=== PATIENT | female | born 1995 | race African-American/Black ===

== ENCOUNTER → 2019-01-12 08:28 | Outpatient (CLI) | payer OTHER, SELFPAY ==
[2019-01-12 09:02] LABS: Influenza A and B by PCR Rapid Negative (Negative)
[2019-01-12 09:16] LABS: Add Manual Diff / Slide Review NO; Basophils Absolute Auto 100 /uL (0-100); Basophils Percent Auto 0.8 % (0-2); Eosinophils Absolute Auto 100 /uL (0-450); Eosinophils Percent Auto 1.8 % (2-4); Lymphocytes Absolute Auto 1600 /uL (1100-4500); Lymphocytes Percent Auto 22.7 % (25-40); Mean Corpuscular HGB Conc 32.5 % (30-36); Mean Corpuscular Hemoglobin 26.9 PG (26-34); Mean Corpuscular Volume 82.6 fL (80-100); Monocytes Absolute Auto 600 /uL (0-900); Monocytes Percent Auto 8.5 % (3-14); Neutrophils Absolute Auto 4600 /uL (1500-7000); Neutrophils Percent Auto 66.2 % (50-75); Platelet Count 413 X10^3/uL (150-400); Red Blood Cell Count 4.84 X10^6/uL (4.0-5.2); Red Cell Distribution Width 15.1 % (11.6-14.8)
[2019-01-12 09:27] LABS: Alanine Aminotransferase 34 IU/L (9-52); Albumin Globulin Ratio 1.3 (1.0-2.8); Alkaline Phosphatase 60 U/L (38-126); Aspartate Aminotransferase 29 IU/L (14-36); BUN Creatinine Ratio 11.3 (6-22); Bilirubin Total 0.4 mg/dL (0.2-1.3); Blood Urea Nitrogen 9 mg/dL (7-17); Calcium 9.9 mg/dL (8.4-10.2); Carbon Dioxide 22 mmol/L (22-32); Chloride 106 mmol/L (98-107); Estimated Glomerular Filt Rate > 60.0 mL/min (>60); Glucose 90 mg/dL (70-100); HEMOLYSIS < 15 (0-50); Potassium 3.8 mmol/L (3.4-5.1); Sodium 141 mmol/L (137-145)
== END ==
PROVIDERS: Visit Provider Physician Assistant
DX: R68.89 Other general symptoms and signs (principal); R11.10 Vomiting, unspecified
CPT/HCPCS: 80053; 85025; 87400

== ENCOUNTER → 2021-03-27 19:04 | Outpatient (ROUT) | payer OTHER, SELFPAY ==
[2021-03-27 19:54] LABS: Alanine Aminotransferase 23 IU/L (<35); Albumin 4.6 g/dL (3.5-5.0); Albumin Globulin Ratio 1.2 (1.0-2.8); Alkaline Phosphatase 67 U/L (38-126); Aspartate Aminotransferase 28 IU/L (14-36); Bilirubin Total 0.2 mg/dL (0.2-1.3); Blood Urea Nitrogen 13 mg/dL (7-17); Calcium 10.1 mg/dL (8.4-10.2); Carbon Dioxide 26 mmol/L (22-32); Chloride 103 mmol/L (98-107); Estimated Glomerular Filt Rate > 60.0 mL/min (>60); Globulin 3.9 g/dL (1.7-4.1); Glucose 91 mg/dL (70-100); HEMOLYSIS < 15 (0-50); Potassium 4.3 mmol/L (3.4-5.1); Sodium 141 mmol/L (137-145); Total Protein 8.5 g/dL (6.3-8.2)
[2021-03-27 20:22] LABS: TSH w/ Reflex to FT4 0.67 uIU/mL (0.47-4.68)
== END ==
PROVIDERS: Visit Provider Internal Medicine
DX: I10 Essential (primary) hypertension (principal)
CPT/HCPCS: 80053; 84443

== ENCOUNTER 2022-06-16 22:59 | Emergency (ER) | payer OTHER, SELFPAY ==
--- NOTE | 2022-06-16 23:04 | DI.RAD.S_ITS ---
PROCEDURE: XR ELBOW LT MIN 3V INDICATIONS: fall TECHNIQUE: 3 views of the elbow were acquired. COMPARISON: None. FINDINGS: Bones: Acute nondisplaced fracture through lateral humeral condyle is seen with fracture line likely extending to the capitellum. No suspicious bony lesions. Soft tissues: Displaced anterior and posterior fat pads are seen consistent with moderate joint effusion. No suspicious soft tissue calcifications. IMPRESSION: Acute nondisplaced lateral humeral condylar fracture with moderate joint effusion. Dictated by: Rolan Maier M.D. on 06/16/2022 at 23:39 Approved by: Rolan Maier M.D. on 06/16/2022 at 23:40
[2022-06-16 23:05] VITALS: PULSE 118; RESP 20; TEMP 36.7; O2SAT 100
--- NOTE | 2022-06-16 23:20 | ED_ITS ---
HPI - Extremity Injury (Upper) General Chief Complaint: Extremity Injury, Upper Stated Complaint: Fall from kitchen counter onto left elbow Time Seen by Provider: 06/16/22 23:01 Source: patient Mode of arrival: Ambulatory History of Present Illness HPI narrative: 26-year-old female nonsmoker with noncontributory medical history presents with her significant other and a chief complaint of severe left elbow pain. She was climbing up on a counter just prior to her arrival trying to catch a spider when she fell awkwardly onto her elbow and states that it hyperextended. She has some numbness in her fingers but is able to extend at the wrist. She denies any shoulder, wrist or finger pain she denies any chest pain or shortness of breath. Her pain is significantly worse with range of motion and improves with rest. She denies any head, neck or back pain Related Data Previous Rx's Medication Instructions Recorded triamcinolone acetonide 0.5 % 1 applic topical TID #15 grams 11/28/21 topical ointment hydrocodone 5 mg-acetaminophen 325 1 tab PO Q4-6H PRN pain #10 tabs 06/16/22 mg tablet Allergies Allergy/AdvReac Type Severity Reaction Status Date / Time No Known Drug Allergies Allergy Verified 11/28/21 08:19 Review of Systems Review of Systems Narrative: GENERAL: Denies chills, fatigue, malaise, fever, sweats. HEENT: Denies sinus pain, ear pain, sore throat, difficulty swallowing, dizziness. RESPIRATORY: Denies dyspnea, cough, wheezing, hemoptysis, sputum. CARDIOVASCULAR: Denies chest pain, palpitations, orthopnea, edema, GASTROINTESTINAL: Denies nausea, vomiting, abdominal pain, diarrhea, constipation, melena. : Denies dysuria, frequency, incontinence, hematuria, urinary retention. MUSCULOSKELETAL: See HPI SKIN: Denies rash, skin lesions, or other NEUROLOGIC: See HPI PSYCHIATRIC: No concerning psychosocial issues. 12 point review of systems is negative except for those stated above Patient History Social History Smoking Status: Never smoker Smoking Status: Never smoker Exam Narrative Exam Narrative: GEN: AOx3 and in mild distress EYES: Pupils are equal, round, and reactive to light and accommodation. Extraoccular muscles are intact bilaterally. There is no subconjunctival hemorrhage or exudate. CHEST: Lungs are clear to auscultation bilaterally and free of wheezes, rales, or rhonchi. Heart rate is regular rhythm, there are no murmurs, clicks, rubs, or gallops. There is no chest wall tenderness. ABD: Abdomen is soft and nontender. There is no guarding or rebound. Bowel sounds are normal in all 4 quadrants. There is no mass or organomegaly. EXT: Decreased range of motion at left elbow secondary to pain, moderate effusion noted, no obvious deformity. No pain in shoulder or wrist. Cap refill intact, she does report some tingling of the tips of her fingers, radial pulse is intact. She has full extension at the wrist SKIN: Warm, pink, and dry. No erythema or rash Initial Vital Signs Initial Vital Signs: Vital Signs Temperature 98.1 F 06/16/22 23:05 Pulse Rate 118 H 06/16/22 23:05 Respiratory Rate 20 06/16/22 23:05 Pulse Oximetry 100 06/16/22 23:05 Oxygen Delivery Method 06/16/22 23:05 Procedures Orthopedic Splinting/Casting Injury #1: Side: left Upper Extremity Injury Location: elbow Upper Extremity Immobilizer: sling/shoulder immobilizer and posterior splint Post splinting neuro exam: intact Post splinting vascular exam: intact Placed by: Nursing Course Orders Ordered: ED Orders 06/16/22 23:04 XR elbow LT min 3V Stat Discontinued Medications Hydrocodone Bitart/Acetaminophen (Hydrocodone/Acet 5/325 Prepack) 1 bottle MISC SEEINSTR ONE Stop: 06/16/22 23:44 Last Admin: 06/16/22 23:54 Dose: 1 bottle Documented By: NR Hydromorphone HCl (Hydromorphone 1 Mg Inj) 1 mg IM NOW ONE Stop: 06/16/22 23:27 Last Admin: 06/16/22 23:29 Dose: 1 mg Documented By: PALOMA Ondansetron HCl (Ondansetron 4 Mg Odt Prepack) 1 bottle MISC SEEINSTR ONE Stop: 06/16/22 23:44 Last Admin: 06/16/22 23:54 Dose: 1 bottle Documented By: NR Consultations Consultation #1: Discussed with on-call orthopedist, Dr. Rodriguez, who has reviewed imaging and recommends posterior slab long-arm splint at near 90? with sling, pain control and follow-up in the office Vital Signs Vital signs: Vital Signs - 8 hr 06/16/22 23:05 06/16/22 23:55 Temperature 98.1 F Pulse Rate 118 H 96 H Respiratory Rate 20 20 Blood Pressure 164/87 H Pulse Oximetry 100 98 Oxygen Delivery Method Room Air Room Air MDM - Extremity Injury (Upper) Imaging Data Extremity x-ray #1: Radiologist's Impression: [address] [address] XRay Report Signed Patient: Una Wharton MR#: [id number] : 1995 Acct:[id number] Age/Sex: 26 / F Date of Service: 06/16/22 Loc: ED Accession Number: [id number] ?? Procedure: XR elbow LT min 3V Ordering Provider: Antonio Jones D.O. PROCEDURE:? XR ELBOW LT MIN 3V ? INDICATIONS:? fall ? TECHNIQUE:? 3 views of the elbow were acquired.? ? COMPARISON:? None. ? FINDINGS:? ? Bones:? Acute nondisplaced fracture through lateral humeral condyle is seen with fracture line likely extending to the capitellum.? No suspicious bony lesions.? ? Soft tissues:? Displaced anterior and posterior fat pads are seen consistent with moderate joint effusion.? No suspicious soft tissue calcifications.? ? ? IMPRESSION:? Acute nondisplaced lateral humeral condylar fracture with moderate joint effusion.? ? ? Dictated by: Rolan Maier M.D. on 06/16/2022 at 23:39 ? ? Approved by: Rolan Maier M.D. on 06/16/2022 at 23:40 ? Discharge Plan Departure Patient Disposition: Home Clinical Impression: Closed fracture of left elbow Instructions: DI for Elbow Fracture Activity Restrictions/Additional Instructions: *You have been diagnosed with [left elbow fracture] *What to do: *Please continue to take your regular medications as directed. [ x] New medication prescriptions sent to your pharmacy: [[facility] ] [ ] New medication written as a paper prescription [x] Tylenol and occasional Motrin for pain *Please follow up with [ Jennifer] of [facility] in 2-3 days, call for an appointment. Let them know you were seen in the Emergency Department and that we ask that you be seen in follow up. We will electronically transmit a record of today's note if your PCP is in our system *Return to Emergency Department if you should have any new, worsening or concerning symptoms, such as [worsening pain, significant swelling, cold extremities, numbness, tingling, weakness or other bothersome symptoms Splint Care: Keep splint clean and dry. Elevated affected body part to decrease swelling. OK to use ice pack on the affected body part. Use for 15-20 minutes each time, for 5-6x per day. If you develop worsening pain, numbness, tingling, discoloration of the affected body part, loosen the splint by loosening the YOVANY wrap, and either see your doctor for an urgent re-assessment, or return to the Emergency Department. Return to the Emergency Department for any new or worsening symptoms. Prescriptions: New hydrocodone-acetaminophen 5-325 mg tablet 1 tab PO Q4-6H PRN (Reason: pain) Qty: 10 0RF No Action triamcinolone acetonide 0.5 % ointment 1 applic topical TID Qty: 15 0RF Referrals: Miscellaneous,DoctorMD [Primary Care Provider] - Vladimir Rodriguez MD [Physician] - Visit Report Forms: Patient Portal/API
[2022-06-16] MEDS: HYDROMORPHONE 1 MG INJ IM (23:29)
[2022-06-16] MEDS: HYDROCODONE/ACET 5/325 PREPACK 1 BOTTLE MISC (23:54)
[2022-06-16] MEDS: ONDANSETRON 4 MG ODT PREPACK 1 BOTTLE MISC (23:54)
[2022-06-16 23:55] VITALS: BP 164/87; PULSE 96; RESP 20; O2SAT 98
== END 2022-06-16 23:55 | disposition home or self-care (01) ==
PROVIDERS: Emergency Provider Emergency Medicine
DX: S42.455A Nondisplaced fracture of lateral condyle of left humerus, initial encounter for closed fracture (principal); W08.XXXA Fall from other furniture, initial encounter
CPT/HCPCS: 29105; 73080; 96372; 99283; 99284; J1170

== ENCOUNTER → 2022-06-17 11:04 | Outpatient (CLI) | payer OTHER, SELFPAY ==
--- NOTE | 2022-06-17 | DI.CT.S_ITS ---
PROCEDURE: CT ELBOW LEFT WITHOUT CON INDICATIONS: CLOSED FRACTURE ELBOW/EVAL FOR FRACTURE TECHNIQUE: Noncontrast 1-1.5 mm axial sections were acquired through the elbow joint, with coronal and sagittal reformats. COMPARISON: [facility], CR, XR ELBOW LT MIN 3V, 06/16/2022, 23:08. FINDINGS: Image quality: Excellent. Bones: There is a comminuted intra-articular fracture of the lateral distal humerus. The dominant capitellar fracture fragment measures approximately 2.6 x 2.1 x 0.9 cm. The fragment is rotated and anteriorly displaced, with the distal margin located anterior to the radial head. An additional minimally displaced comminuted fracture fragment at the lateral epicondyle measures approximately 1.5 x 0.7 x 1.1 cm. The humeral trochlea is intact. The proximal ulna and proximal radius appear to be intact. Soft tissues: Moderate elbow joint effusion. The articular cartilages, ligaments, and tendons are not well evaluated with CT. Subcutaneous soft tissue edema is seen at the posterolateral aspect of the elbow. IMPRESSION: Comminuted displaced intra-articular fracture of the distal lateral aspect of the humerus. The anterior capitellar fracture fragment is anteriorly displaced and rotated, located anterior to the radial head. Moderate joint effusion. Dictated by: Jose Merrill M.D. on 06/17/2022 at 13:38 Approved by: Jose Merrill M.D. on 06/17/2022 at 13:45
== END ==
PROVIDERS: Referring Provider Orthopaedic Surgery; Visit Provider Orthopaedic Surgery
DX: S42.452A Displaced fracture of lateral condyle of left humerus, initial encounter for closed fracture (principal); M25.462 Effusion, left knee; X58.XXXA Exposure to other specified factors, initial encounter
CPT/HCPCS: 73200

== ENCOUNTER → 2022-11-06 10:09 | Outpatient (CLI) | payer OTHER, SELFPAY ==
[2022-11-06 11:14] LABS: Influenza A - CEPHEID Flu A NEGATIVE (NEGATIVE); Influenza B - CEPHEID Flu B NEGATIVE (NEGATIVE); Respiratory Syncytial Virus Negative (Negative)
[2022-11-06 11:20] LABS: COVID-19 CEPHEID 4-PLEX PCR Negative (Negative)
== END ==
PROVIDERS: Visit Provider Nurse Practitioner Family
DX: R52 Pain, unspecified (principal); R53.83 Other fatigue; Z20.822 Contact with and (suspected) exposure to COVID-19
CPT/HCPCS: 0241U

== ENCOUNTER 2023-06-27 15:14 | Emergency (ER) | payer OTHER, SELFPAY ==
[2023-06-27] VITALS (7 sets, daily range): BP systolic 159–199; BP diastolic 88–107; PULSE 88–119; RESP 18; TEMP 36.8; O2SAT 99–100; BMI 28.8
--- NOTE | 2023-06-27 15:34 | ED_ITS ---
HPI - GI Bleed General Chief complaint: GI Bleed Stated complaint: GI bleed Time Seen by Provider: 06/27/23 15:26 Source: patient Mode of arrival: Ambulatory History of Present Illness HPI Narrative: Patient is a 27-year-old female. History of heavy menstrual cycles and also has a history of high blood pressure. Is here for evaluation of 2-3 days of bright red blood per rectum. She states it is not painful for her to go to the [facility]. She has had some burning in the left side of her abdomen that does not seem to be related to the bowel movements. No urinary symptoms. Has not having any vaginal bleeding. No vomiting. No recent travel. No recent antibiotics. No fevers. No constipation. No diarrhea. She states the blood only occurs when she is having bowel movements. Related Data Previous Rx's Medication Instructions Recorded triamcinolone acetonide 0.5 % 1 applic topical TID #15 grams 11/28/21 topical ointment hydrocodone 5 mg-acetaminophen 325 1 tab PO Q4-6H PRN pain #10 tabs 06/16/22 mg tablet Allergies Allergy/AdvReac Type Severity Reaction Status Date / Time latex Allergy Rash Verified 06/27/23 15:27 Review of Systems Constitutional Constitutional: Reports system reviewed and no additional complaints, except as documented Gastrointestinal Gastrointestinal: Reports system reviewed and no additional complaints, except as documented Genitourinary Genitourinary: Reports system reviewed and no additional complaints, except as documented Integumentary/Breasts Skin/Breast: Reports system reviewed and no additional complaints, except as documented Hematologic/Lymphatic On Anticoagulants: No Patient History Medical History Hypertension Social History Smoking Status: Never smoker Smoking Status: Never smoker alcohol intake frequency: 0-2 drinks per day Substance Use Type: does not use Exam Initial Vital Signs Initial Vital Signs: Vital Signs Temperature 98.2 F 06/27/23 15:20 Pulse Rate 107 H 06/27/23 15:20 Respiratory Rate 18 06/27/23 15:20 Blood Pressure 191/92 H 06/27/23 15:20 Pulse Oximetry 100 06/27/23 15:20 Oxygen Delivery Method Room Air 06/27/23 15:20 Const General: cooperative, comfortable and No ill appearing [facility] Head: normal to inspection and normocephalic Resp Effort & Inspection: normal respiratory effort Cardio Rate: tachycardic GI Rectal Exam: visual inspection normal, fissure, heme positive stool and hemorrhoids (Internal) Skin General: no rashes or lesions noted Neuro General: patient alert, patient awake and moves all extremities Course Orders Ordered: ED Orders 06/27/23 15:51 Basic Metabolic Panel Stat Complete Blood Count AUTO DIFF Stat Vital Signs Vital signs: Vital Signs - 8 hr 06/27/23 15:20 06/27/23 15:35 06/27/23 15:35 Temperature 98.2 F Pulse Rate 107 H 119 H Respiratory Rate 18 Blood Pressure 191/92 H 199/107 H Pulse Oximetry 100 100 Oxygen Delivery Method Room Air 06/27/23 15:39 06/27/23 15:39 06/27/23 16:04 Temperature Pulse Rate 114 H 93 H Respiratory Rate Blood Pressure 186/91 H Pulse Oximetry 100 99 Oxygen Delivery Method 06/27/23 16:05 06/27/23 16:05 Temperature Pulse Rate 93 H Respiratory Rate Blood Pressure 169/91 H Pulse Oximetry 99 Oxygen Delivery Method Room Air MDM - GI Bleed Lab Data Attestation: I reviewed the patient's lab results. 06/27/23 15:51 06/27/23 15:51 Labs: Lab Results 06/27/23 06/27/23 Range/Units 15:51 15:51 WBC 6.4 (4.5-11.0) X10^3/uL RBC 4.61 (4.0-5.2) X10^6/uL Hgb 10.6 L (12.0-16.0) g/dL Hct 33.1 L (36-46) % MCV 71.7 L (80-100) fL MCH 22.9 L (26-34) PG MCHC 32.0 (30-36) % RDW 17.7 H (11.6-14.8) % Plt Count 437 H (150-400) X10^3/uL Neut % (Auto) 56.6 (50-75) % Lymph % (Auto) 25.3 (25-40) % Maverick % (Auto) 14.2 H (3-14) % Eos % (Auto) 3.0 (2-4) % Baso % (Auto) 0.9 (0-2) % Neut # (Auto) 3600 (7742-0501) /uL Lymph # (Auto) 1600 (4597-7053) /uL Maverick # (Auto) 900 (0-900) /uL Eos # (Auto) 200 (0-450) /uL Baso # (Auto) 100 (0-100) /uL Sodium 139 (137-145) mmol/L Potassium 3.3 L (3.4-5.1) mmol/L Chloride 103 (98-107) mmol/L Carbon Dioxide 26 (22-32) mmol/L BUN 8 (7-17) mg/dL Creatinine 1.04 (0.52-1.04) mg/dL Estimated GFR > 60 (>60) mL/min BUN/Creatinine Ratio 7.7 (6-22) Glucose 92 (70-100) mg/dL Calcium 9.2 (8.4-10.2) mg/dL Point of Care Testing Stool Occult Blood Positive MDM Narrative Medical decision making narrative: Patient does have what feels like a internal hemorrhoid on exam. She is Hemoccult positive. She is a benign abdominal exam. Was initially tachycardic but that has improved with time. Has not been hypotensive. She is only slightly anemic and certainly not at a point that would require blood transfusion. Feel that we can hold on any radiologic studies for now. Will have the patient contact General surgery for follow-up to discuss potential further more invasive studies to include colonoscopy verses flex sig. patient was given return precautions. She expressed understanding and agreement. Discharge Plan Departure Patient Disposition: Home Clinical Impression: Bright red rectal bleeding, Internal hemorrhoid Instructions: Gastrointestinal Bleeding Activity Restrictions/Additional Instructions: I do recommend that you contact the general surgeons of the number provided below for follow-up. Also contact your primary doctor for follow-up. Return to the emergency department for new or worsening symptoms. Prescriptions: No Action triamcinolone acetonide 0.5 % ointment 1 applic topical TID Qty: 15 0RF hydrocodone-acetaminophen 5-325 mg tablet 1 tab PO Q4-6H PRN (Reason: pain) Qty: 10 0RF Referrals: Jayden Coley MD [Primary Care Provider] - Laci Sue MD [Physician] - Stand Alone Forms: Patient Portal/API
[2023-06-27 15:58] LABS: Add Manual Diff / Slide Review NO; Basophils Absolute Auto 100 /uL (0-100); Basophils Percent Auto 0.9 % (0-2); Eosinophils Absolute Auto 200 /uL (0-450); Hematocrit 33.1 % (36-46); Hemoglobin 10.6 g/dL (12.0-16.0); Lymphocytes Absolute Auto 1600 /uL (1100-4500); Lymphocytes Percent Auto 25.3 % (25-40); Mean Corpuscular Hemoglobin 22.9 PG (26-34); Mean Corpuscular Volume 71.7 fL (80-100); Monocytes Absolute Auto 900 /uL (0-900); Monocytes Percent Auto 14.2 % (3-14); Neutrophils Absolute Auto 3600 /uL (1500-7000); Neutrophils Percent Auto 56.6 % (50-75); Platelet Count 437 X10^3/uL (150-400); Red Blood Cell Count 4.61 X10^6/uL (4.0-5.2); Red Cell Distribution Width 17.7 % (11.6-14.8); White Blood Cell Count 6.4 X10^3/uL (4.5-11.0)
[2023-06-27 16:12] LABS: BUN Creatinine Ratio 7.7 (6-22); Blood Urea Nitrogen 8 mg/dL (7-17); Calcium 9.2 mg/dL (8.4-10.2); Carbon Dioxide 26 mmol/L (22-32); Chloride 103 mmol/L (98-107); Estimated Glomerular Filt Rate > 60 mL/min (>60); Glucose 92 mg/dL (70-100); HEMOLYSIS < 15 (0-50); Potassium 3.3 mmol/L (3.4-5.1); Sodium 139 mmol/L (137-145)
[2023-06-27 18:00] LABS: Bacteria Urine Moderate (10-30); Culture Indicated Urine Specimen Cultured; RBC Urine 0-1/HPF (0-5/HPF); Squamous Epithelial Cell Urine 0-1 /HPF (0-5/HPF); Transitional Epi Cells Urine 0-1/HPF (0-5/HPF); WBC Urine 5-10/HPF (0-5/HPF)
== END 2023-06-27 17:35 | disposition home or self-care (01) ==
PROVIDERS: Emergency Provider Emergency Medicine; PCP Orthopaedic Surgery Foot and Ankle Surgery
DX: K62.5 Hemorrhage of anus and rectum (principal); K64.8 Other hemorrhoids; B96.20 Unspecified Escherichia coli [E. coli] as the cause of diseases classified elsewhere
CPT/HCPCS: 36415; 80048; 81003; 81015; 82272; 85025; 87077; 87086; 87186; 99283

== ENCOUNTER 2024-06-02 09:57 | Emergency (ER) | payer SELFPAY ==
[2024-06-02] VITALS (19 sets, daily range): BP systolic 146–190; BP diastolic 72–124; PULSE 78–98; RESP 15–22; TEMP 37.1; O2SAT 99–100
--- NOTE | 2024-06-02 10:09 | EKG_ITS ---
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
[2024-06-02] MEDS: SODIUM CHLORIDE 0.9% 1,000 ML 1000 ML IV (10:14)
--- NOTE | 2024-06-02 10:21 | ED.ABDPAIN ---
HPI - Abdominal Pain General Chief Complaint: Hypertension Stated Complaint: 14 Weeks , dizzy , tightness in chest Time Seen by Provider: 06/02/24 10:01 Source: patient Mode of arrival: Ambulatory History of Present Illness HPI narrative: Patient is a 28-year-old female history of hypertension presenting today with nausea vomiting mild right-sided pain headache weakness. [facility] She reports that she was taking medication for hypertension but ultimately tapered off her spironolactone and is only doing natural medicine now. She is noted to be quite hypertensive. She reports some lightheadedness. Denies chest pain has some tingling in her left arm. No vaginal bleeding. But has a little mild right-sided discomfort. Related Data Home Medications Medication Instructions Recorded Confirmed atenolol 50 mg tablet 50 mg PO DAILY 01/21/24 01/21/24 chlorthalidone 50 mg tablet 50 mg PO DAILY 01/21/24 01/21/24 Previous Rx's Medication Instructions Recorded labetalol 200 mg tablet 200 mg PO BID #60 tabs 06/02/24 ondansetron 4 mg disintegrating 4 mg PO Q8H PRN nausea and 06/02/24 tablet vomiting #10 tabs Allergies Allergy/AdvReac Type Severity Reaction Status Date / Time latex Allergy Rash Verified 06/02/24 10:12 amlodipine AdvReac Severe cardiac Verified 06/02/24 10:12 Patient History Medical History Hypertension Social History Smoking Status: Never smoker Smoking Status: Never smoker alcohol intake frequency: 0-2 drinks per day Substance Use Type: does not use Exam Initial Vital Signs Initial Vital Signs: Vital Signs Blood Pressure 190/124 H 06/02/24 10:04 GENERAL: Well-appearing, well-nourished and in no acute distress. HEENT: Head atraumatic,EOMI, pupils reactive, face symmetric, moist mucous membranes CARDIOVASCULAR: Regular rate and rhythm without murmurs, rubs or gallops. RESPIRATORY: Breath sounds equal bilaterally, no wheezes rales or rhonchi. ABDOMEN: Soft minimal tenderness right lower quadrant no guarding or rebound. Normoactive bowel sounds all 4 quadrants. No guarding or rebound. EXTREMITIES: Normal range of motion, no clubbing or edema. Neurovascularly intact NEUROLOGICAL: Alert and oriented x4.Normal gait and speech. SKIN: Warm, dry, no laceration, no petechiae, no rashes or lesions. Course Orders Ordered: ED Orders 06/02/24 10:09 Complete Blood Count AUTO DIFF Stat Comprehensive Metabolic Panel Stat HCG Quantitative /Beta subunit Stat Lipase Stat Troponin & CK Cardiac Panel Stat EKG-12 Lead Stat 06/02/24 10:16 ABO RH Type Stat 06/02/24 10:29 US OB >= 14 weeks Fetus Stat Discontinued Medications Sodium Chloride (Normal Saline 0.9%) 1,000 mls @ 1,000 mls/hr IV BOLUS ONE Stop: 06/02/24 11:08 Last Infusion: 06/02/24 12:23 Dose: Infused Documented By: Admin: 06/02/24 10:14 Dose: 1,000 mls/hr Documented By: Labetalol HCl (Labetalol 20 Mg/4 Ml Syringe) 10 mg IV NOW ONE Stop: 06/02/24 10:22 Last Admin: 06/02/24 10:31 Dose: 10 mg Documented By: Labetalol HCl (Labetalol 100 Mg Tablet) 200 mg PO NOW ONE Stop: 06/02/24 13:00 Last Admin: 06/02/24 13:09 Dose: 200 mg Documented By: ERICA Ondansetron HCl (Ondansetron 4 Mg/2 Ml Inj) 4 mg IV NOW ONE Stop: 06/02/24 10:22 Last Admin: 06/02/24 10:31 Dose: 4 mg Documented By: Vital Signs Vital signs: Vital Signs - 8 hr 06/02/24 10:04 06/02/24 10:09 06/02/24 10:15 Temperature 98.8 F Pulse Rate 97 H Respiratory Rate 16 Blood Pressure 190/124 H 190/124 H 176/114 H Pulse Oximetry 99 Oxygen Delivery Method Room Air 06/02/24 10:15 06/02/24 11:04 06/02/24 11:05 Temperature Pulse Rate 98 H 87 83 Respiratory Rate 16 19 Blood Pressure Pulse Oximetry 100 100 100 Oxygen Delivery Method 06/02/24 11:05 06/02/24 11:06 06/02/24 11:15 Temperature Pulse Rate 83 84 Respiratory Rate 18 Blood Pressure 181/88 H 181/88 H Pulse Oximetry 100 Oxygen Delivery Method 06/02/24 11:15 06/02/24 11:30 06/02/24 11:30 Temperature Pulse Rate 79 Respiratory Rate 15 Blood Pressure 157/78 H 162/87 H Pulse Oximetry 100 Oxygen Delivery Method 06/02/24 11:45 06/02/24 11:45 06/02/24 12:00 Temperature Pulse Rate 83 81 Respiratory Rate 19 15 Blood Pressure 170/91 H Pulse Oximetry 100 100 Oxygen Delivery Method 06/02/24 12:00 06/02/24 12:15 06/02/24 12:15 Temperature Pulse Rate 83 Respiratory Rate 15 Blood Pressure 171/89 H 169/86 H Pulse Oximetry 100 Oxygen Delivery Method 06/02/24 12:30 06/02/24 12:30 06/02/24 12:40 Temperature Pulse Rate 86 91 H Respiratory Rate 19 22 Blood Pressure 146/78 H Pulse Oximetry 100 100 Oxygen Delivery Method 06/02/24 12:40 06/02/24 12:45 06/02/24 12:45 Temperature Pulse Rate 80 Respiratory Rate 18 Blood Pressure 163/87 H 152/82 H Pulse Oximetry 100 Oxygen Delivery Method 06/02/24 13:00 06/02/24 13:00 06/02/24 13:07 Temperature Pulse Rate 81 83 Respiratory Rate 18 18 Blood Pressure 162/89 H Pulse Oximetry 100 100 Oxygen Delivery Method 06/02/24 13:07 06/02/24 13:09 06/02/24 13:15 Temperature Pulse Rate 90 82 Respiratory Rate 22 Blood Pressure 167/93 H 167/93 H Pulse Oximetry 100 Oxygen Delivery Method 06/02/24 13:15 06/02/24 13:58 Temperature Pulse Rate 78 Respiratory Rate Blood Pressure 156/89 H 160/72 H Pulse Oximetry Oxygen Delivery Method MDM - Abdominal Pain Lab Data 06/02/24 10:09 06/02/24 10:09 Labs: Lab Results 06/02/24 06/02/24 Range/Units 10:09 10:16 WBC 9.1 (4.5-11.0) X10^3/uL RBC 4.73 (4.0-5.2) X10^6/uL Hgb 11.1 L (12.0-16.0) g/dL Hct 34.6 L (36-46) % MCV 73.1 L (80-100) fL MCH 23.5 L (26-34) PG MCHC 32.2 (30-36) % RDW 17.1 H (11.6-14.8) % Plt Count 435 H (150-400) X10^3/uL Neut % (Auto) 75.4 H (50-75) % Lymph % (Auto) 15.0 L (25-40) % [place] % (Auto) 8.5 (3-14) % Eos % (Auto) 0.7 L (2-4) % Baso % (Auto) 0.4 (0-2) % Neut # (Auto) 6800 (2397-6779) /uL Lymph # (Auto) 1400 (6024-4970) /uL [place] # (Auto) 800 (0-900) /uL Eos # (Auto) 100 (0-450) /uL Baso # (Auto) 0 (0-100) /uL Sodium 137 (137-145) mmol/L Potassium 3.4 (3.4-5.1) mmol/L Chloride 106 (98-107) mmol/L Carbon Dioxide 21 L (22-32) mmol/L BUN 5 L (7-17) mg/dL Creatinine 0.74 (0.52-1.04) mg/dL Estimated GFR > 60 (>60) mL/min BUN/Creatinine Ratio 6.8 (6-22) Glucose 96 (70-100) mg/dL Calcium 8.9 (8.4-10.2) mg/dL Total Bilirubin 0.4 (0.2-1.3) mg/dL AST 21 (14-36) IU/L ALT 15 (<35) IU/L Alkaline Phosphatase 56 (38-126) U/L Total Creatine Kinase 114 (30-135) U/L Troponin I < 0.012 (0.01-0.034) ng/mL Total Protein 8.4 H (6.3-8.2) g/dL Albumin 4.6 (3.5-5.0) g/dL Globulin 3.8 (1.7-4.1) g/dL Albumin/Globulin Ratio 1.2 (1.0-2.8) Lipase 48 (23-300) U/L HCG, Quant mIU/mL Blood Type O Positive Point of care testing: Urine Dip Bedside Urine Glucose Negative Bedside Urine Bilirubin - Negative Bedside Urine Ketone - Negative Urine Specific [place] 1.010 Bedside Urine Occult Blood - Negative Bedside Urine pH 7.5 Bedside Urine Protein - Negative Bedside Urine Urobilinogen - Negative Bedside Urine Nitrite - Negative Bedside Urine Leukocytes - Negative Esterase Imaging Data US - OB: Radiologist's Impression: PROCEDURE: US OB >= 14 WEEKS FETUS INDICATIONS: 14 weeks, HTN, first OB US OUTSIDE/PRIOR DATING DATA: Last menstrual period (LMP): 03/02/2024 LMP-based estimated date of delivery (RJ): 12/02/2024 First dating scan (date and location): 06/02/2024 Estimated date of delivery (RJ) from first dating scan: 12/13/2024. TECHNIQUE: Real-time scanning was performed of the fetus, with image documentation and biometric measurements. Endovaginal scanning: Performed COMPARISON: None. FINDINGS: General: A single living intrauterine gestation is present. Presentation: Variable. Placenta: Placental position is anterior,, without previa. Amniotic fluid index: Visually within normal limits. heart rate: 168 beats per minute. Maternal cervical canal: Closed and measures 3.5 cm long. Normal lower limit is 2.5 cm. biometrics: Biparietal diameter: 1.7 cm, 12 weeks, 3 days Head circumference: 6.6 cm, 12 weeks, 4 days Abdominal circumference: 5.3 cm, 12 weeks, 2 days Femur length: 0.8 cm, 12 weeks, 4 days Clinically estimated gestational age: 13 weeks, 6 days Composite gestational age from present scan: 12 weeks, 2 days Estimated weight and percentile: 52% Bilateral ovaries are visualized and are within normal limits. Simple appearing right ovarian cyst measures 2.6 x 1.7 x 2.1 cm in size is seen. IMPRESSION: 1. Single live intrauterine gestation with fetus in variable presentation. heart rate is 168 beats per minute. Normal amount of amniotic fluid. 2. Estimated gestational age based on current study is 12 weeks, 2 days. Estimated weight is approximately 52%. 3. Right ovarian cyst as above. No evidence of ovarian torsion. We strive to produce accurate, complete, and clear reports of imaging services. To assist us in improving patient care, this report was composed using standard report templates and voice recognition software. Therefore, it may contain abnormal punctuation, insertions and/or omissions. Occasional wrong-word or sound-alike substitutions may occur. Though we review the report and make efforts to correct it, we do recommend that the report be read carefully in proper context to recognize any text inaccuracies. Dictated by: Rolan Maier M.D. on 06/02/2024 at 11:39 ECG Data Attestation: I personally reviewed and interpreted this ECG as follows: Interpretation: Normal sinus rhythm rate 94 IN interval 136 QRS [address] changes no T-wave inversions MDM Narrative Medical decision making narrative: Patient is a 28-year-old female history of hypertension currently about 14 weeks . She is presenting with will dizziness lightheadedness and some lower abdominal pain. She has not yet had a formal ultrasound. Patient is noted to be quite hypertensive pressure 190/124 with a heart rate of 97 Blood work has been reviewed overall reassuring no leukocytosis or anemia no ANA, carbon dioxide 21 creatinine 0.7 troponin negative EKG reviewed Ultrasound does show 12 week 2 day with heart tone of 168 Patient reports that her blood pressure is quite labile at times but always elevated just sometimes more than normal. Patient is given 10 mg of labetalol blood pressure does improve some symptoms are improving. Dr. Hirsch, in ED to see and evaluate patient. She reports that patient can be discharged home with labetalol. Patient gets insurance next month she will follow-up with [facility]. Patient is instructed to check blood pressure daily. I have discussed all of these recommendations with the patient and she understands. Discharge Plan Departure Patient Disposition: Home Clinical Impression: Hypertension affecting Instructions: DI for High Blood Pressure Activity Restrictions/Additional Instructions: *You have been diagnosed with hypertension in *What to do: At this time it is very important he your blood pressure under control especially while you are . You will need to follow-up with OB Continue to check blood pressure daily *Continue to take medications as directed--> [facility] Labetalol 200 mg twice a day Zofran 4 mg every 8 hours only if needed for nausea or vomiting *Follow up with your primary care provider in 2-3 days or call [phone] *Return to ER if you should have increasing weakness chest pain dizziness or any new, worsening or concerning symptoms Prescriptions: New labetalol 200 mg tablet 200 mg PO BID Qty: 60 0RF ondansetron 4 mg tablet,disintegrating 4 mg PO Q8H PRN (Reason: nausea and vomiting) Qty: 10 0RF No Action atenolol 50 mg tablet 50 mg PO DAILY chlorthalidone 50 mg tablet 50 mg PO DAILY Referrals: Jayden Coley MD [Primary Care Provider] - Stand Alone Forms: Patient Portal/API
[2024-06-02 10:25] LABS: Add Manual Diff / Slide Review NO; Basophils Absolute Auto 0 /uL (0-100); Basophils Percent Auto 0.4 % (0-2); Eosinophils Absolute Auto 100 /uL (0-450); Eosinophils Percent Auto 0.7 % (2-4); Hematocrit 34.6 % (36-46); Hemoglobin 11.1 g/dL (12.0-16.0); Lymphocytes Absolute Auto 1400 /uL (1100-4500); Mean Corpuscular HGB Conc 32.2 % (30-36); Mean Corpuscular Hemoglobin 23.5 PG (26-34); Mean Corpuscular Volume 73.1 fL (80-100); Monocytes Absolute Auto 800 /uL (0-900); Monocytes Percent Auto 8.5 % (3-14); Neutrophils Absolute Auto 6800 /uL (1500-7000); Neutrophils Percent Auto 75.4 % (50-75); Platelet Count 435 X10^3/uL (150-400); Red Blood Cell Count 4.73 X10^6/uL (4.0-5.2); Red Cell Distribution Width 17.1 % (11.6-14.8); White Blood Cell Count 9.1 X10^3/uL (4.5-11.0)
--- NOTE | 2024-06-02 10:29 | DI.US.S_ITS ---
PROCEDURE: US OB >= 14 WEEKS FETUS INDICATIONS: 14 weeks, HTN, first OB US OUTSIDE/PRIOR DATING DATA: Last menstrual period (LMP): 03/02/2024 LMP-based estimated date of delivery (RJ): 12/02/2024 First dating scan (date and location): 06/02/2024 Estimated date of delivery (RJ) from first dating scan: 12/13/2024. TECHNIQUE: Real-time scanning was performed of the fetus, with image documentation and biometric measurements. Endovaginal scanning: Performed COMPARISON: None. FINDINGS: General: A single living intrauterine gestation is present. Presentation: Variable. Placenta: Placental position is anterior,, without previa. Amniotic fluid index: Visually within normal limits. heart rate: 168 beats per minute. Maternal cervical canal: Closed and measures 3.5 cm long. Normal lower limit is 2.5 cm. biometrics: Biparietal diameter: 1.7 cm, 12 weeks, 3 days Head circumference: 6.6 cm, 12 weeks, 4 days Abdominal circumference: 5.3 cm, 12 weeks, 2 days Femur length: 0.8 cm, 12 weeks, 4 days Clinically estimated gestational age: 13 weeks, 6 days Composite gestational age from present scan: 12 weeks, 2 days Estimated weight and percentile: 52% Bilateral ovaries are visualized and are within normal limits. Simple appearing right ovarian cyst measures 2.6 x 1.7 x 2.1 cm in size is seen. IMPRESSION: 1. Single live intrauterine gestation with fetus in variable presentation. heart rate is 168 beats per minute. Normal amount of amniotic fluid. 2. Estimated gestational age based on current study is 12 weeks, 2 days. Estimated weight is approximately 52%. 3. Right ovarian cyst as above. No evidence of ovarian torsion. We strive to produce accurate, complete, and clear reports of imaging services. To assist us in improving patient care, this report was composed using standard report templates and voice recognition software. Therefore, it may contain abnormal punctuation, insertions and/or omissions. Occasional wrong-word or sound-alike substitutions may occur. Though we review the report and make efforts to correct it, we do recommend that the report be read carefully in proper context to recognize any text inaccuracies. Dictated by: Rolan Maier M.D. on 06/02/2024 at 11:39 Approved by: Rolan Maier M.D. on 06/02/2024 at 11:43
[2024-06-02] MEDS: ONDANSETRON 4 MG/2 ML INJ IV (10:31)
[2024-06-02] MEDS: LABETALOL 20 MG/4 ML SYRINGE 10 MG IV (10:31)
[2024-06-02 10:43] LABS: Alanine Aminotransferase 15 IU/L (<35); Albumin 4.6 g/dL (3.5-5.0); Albumin Globulin Ratio 1.2 (1.0-2.8); Alkaline Phosphatase 56 U/L (38-126); Aspartate Aminotransferase 21 IU/L (14-36); BUN Creatinine Ratio 6.8 (6-22); Bilirubin Total 0.4 mg/dL (0.2-1.3); Blood Urea Nitrogen 5 mg/dL (7-17); Calcium 8.9 mg/dL (8.4-10.2); Carbon Dioxide 21 mmol/L (22-32); Chloride 106 mmol/L (98-107); Creatine Kinase 114 U/L (30-135); Estimated Glomerular Filt Rate > 60 mL/min (>60); Globulin 3.8 g/dL (1.7-4.1); Glucose 96 mg/dL (70-100); HEMOLYSIS < 15 (0-50); Lipase 48 U/L (23-300); Potassium 3.4 mmol/L (3.4-5.1); Sodium 137 mmol/L (137-145); Total Protein 8.4 g/dL (6.3-8.2)
[2024-06-02 10:56] LABS: Troponin I < 0.012 ng/mL (0.01-0.034)
[2024-06-02] MEDS: LABETALOL 100 MG TABLET 200 MG PO (13:09)
--- NOTE | 2024-06-02 16:58 | PM.CALLCOV.1 ---
Call Coverage Note Note Date of Patient Contact: 06/02/24 Time of Patient Contact: 12:37 Narrative of Care Provided: 28-year-old presenting to the ER [id number] with headache and feeling off. This was an unplanned but desired . She has received her confirmation and was [facility] She has a history of hypertension since the age of 10 and has previously been on atenolol 50 mg daily and chlorthalidone 50 mg daily, before transitioning to spironolactone but has more recently tapered off of her medications and has been managing with acupuncture and Yoruba herbs. She presents today feeling mostly off. On arrival in the ER blood pressure was severely elevated to 190/124. She was given 10 mg of IV labetalol which did improve her pressure. On my arrival to the ER blood pressure was in the low 150/90 range. The patient states that for her this blood pressure is quite low. She is feeling well with this pressure. We discussed that blood pressure control is of very high importance in and I would recommend taking antihypertensives moving forward. Discussed with pt and with ER provider that my recommendation would be for admission for observation and blood pressure control, but patient is uninsured and declines admission. As a secondary option, recommend decreasing blood pressure to 130-140 over 80s here and then releasing home on p.o. labetalol 200 mg b.i.d. as she does not lability in BPs with frequent lows as well as high. Recommend that [facility] for a blood pressure check, may need to increase to labetalol 300 t.i.d.. She has a establish care appointment set up with [facility] at the beginning of June as this is when her insurance we will begin. I discussed return precautions and symptoms of preeclampsia that should prompt return to care immediately regardless of insurance status. We discussed that she may high-risk out of midwifery care and that there are providers at [facility] who could take on her care but regardless, recommend that she obtain OB care as soon as possible. Pt is very high risk for hypertension in pregnnacy spectrum d/o and will need close monitoring. she is aware of the severity of her BP today and the need for close monitoring.
== END 2024-06-02 13:59 | disposition home or self-care (01) ==
PROVIDERS: Emergency Provider Emergency Medicine; PCP Orthopaedic Surgery Foot and Ankle Surgery
DX: O10.011 Pre-existing essential hypertension complicating pregnancy, first trimester (principal); O21.9 Vomiting of pregnancy, unspecified; Z3A.12 12 weeks gestation of pregnancy
CPT/HCPCS: 36415; 76811; 80053; 81003; 82550; 83690; 84484; 84702; 85025; 86900; 86901; 93005; 96374; 96375; 99284; J2405

== ENCOUNTER → 2024-06-28 17:17 | Outpatient (ROUT) | payer SELFPAY ==
[2024-06-28 18:08] LABS: Creatinine Urine Random 143.98 mg/dL
[2024-06-28 18:09] LABS: Protein (Total) Urine Random < 5 mg/dL (0-12); Protein Creatinine Ratio Urine 0.03 GRAM/24H
== END ==
PROVIDERS: PCP Orthopaedic Surgery Foot and Ankle Surgery; Visit Provider Nurse Practitioner Obstetrics & Gynecology
DX: Z34.92 Encounter for supervision of normal pregnancy, unspecified, second trimester (principal); R03.0 Elevated blood-pressure reading, without diagnosis of hypertension
CPT/HCPCS: 82570; 84156

== ENCOUNTER → 2024-07-05 08:17 | Outpatient (CLI) | payer OTHER, SELFPAY ==
[2024-07-05 11:27] LABS: Glucose Fasting 88 mg/dL (70-100)
[2024-07-05 12:16] LABS: Glucose Tol Interpretation INTERPRETATION
[2024-07-05 12:43] LABS: Glucose 1 Hour 102 mg/dL (70-170)
[2024-07-05 13:03] LABS: Glucose 2 Hour 122 mg/dL (70-140)
== END ==
PROVIDERS: PCP Orthopaedic Surgery Foot and Ankle Surgery; Referring Provider Nurse Practitioner Obstetrics & Gynecology; Visit Provider Nurse Practitioner Obstetrics & Gynecology
DX: Z34.90 Encounter for supervision of normal pregnancy, unspecified, unspecified trimester (principal); Z13.1 Encounter for screening for diabetes mellitus; Z3A.16 16 weeks gestation of pregnancy
CPT/HCPCS: 36415; 82951; 82952

== ENCOUNTER → 2024-07-17 14:02 | Outpatient (ROUT) | payer OTHER, SELFPAY ==
[2024-07-17 14:52] LABS: HEMOLYSIS < 15 (0-50); Iron 51 ug/dL (37-170)
[2024-07-17 15:03] LABS: Percent Iron Saturation 12 % (15-50); Total Iron Binding Capacity 422 ug/dL (265-497); Transferrin 338 mg/dL (206-381)
[2024-07-17 15:28] LABS: Ferritin 6 ng/mL (6-137)
== END ==
PROVIDERS: PCP Orthopaedic Surgery Foot and Ankle Surgery; Visit Provider Advanced Practice Midwife
DX: O99.019 Anemia complicating pregnancy, unspecified trimester (principal); O23.40 Unspecified infection of urinary tract in pregnancy, unspecified trimester; D56.9 Thalassemia, unspecified
CPT/HCPCS: 82728; 83540; 83550; 87077; 87086; 87186

== ENCOUNTER → 2024-10-01 14:55 | Outpatient (CLI) | payer OTHER, SELFPAY ==
[2024-10-01 16:46] LABS: Hemoglobin 10.7 g/dL (12.0-16.0)
[2024-10-01 17:43] LABS: GTT (PREG) 1 Hour PP 50gm Dose 92 mg/dL (76-139)
== END ==
PROVIDERS: Referring Provider Obstetrics & Gynecology; Visit Provider Obstetrics & Gynecology
DX: Z34.82 Encounter for supervision of other normal pregnancy, second trimester (principal); Z3A.30 30 weeks gestation of pregnancy
CPT/HCPCS: 36415; 82950; 85014; 85018

== ENCOUNTER 2024-10-15 08:19 | Outpatient (CLI) | payer OTHER, SELFPAY | END 2024-10-15 09:05 | disposition home or self-care (01) | LOC: LABOR 08:57 → OB 10-18 11:43 | PROVIDERS: Referring Provider Obstetrics & Gynecology; Visit Provider Obstetrics & Gynecology | DX: O10.913 Unspecified pre-existing hypertension complicating pregnancy, third trimester (principal); Z3A.32 32 weeks gestation of pregnancy | CPT/HCPCS: 59025; G0378; G0379 ==

== ENCOUNTER 2024-10-22 08:57 | Outpatient (CLI) | payer OTHER, SELFPAY | END 2024-10-22 10:35 | disposition home or self-care (01) | LOC: LABOR 09:44 → OB 10-24 09:24 | PROVIDERS: Referring Provider Obstetrics & Gynecology; Visit Provider Obstetrics & Gynecology | DX: O10.913 Unspecified pre-existing hypertension complicating pregnancy, third trimester (principal); Z3A.33 33 weeks gestation of pregnancy | CPT/HCPCS: 59025; 59050; 84112; G0378; G0379 ==

== ENCOUNTER 2024-10-29 08:55 | Outpatient (CLI) | payer OTHER, SELFPAY ==
--- NOTE | 2024-10-29 09:04 | DI.US.S_ITS ---
PROCEDURE: US OB LIMITED INDICATIONS: LOW AMNIOTIC FLUID - BIOPHYSICAL AND GROWTH OUTSIDE/PRIOR DATING DATA: The calculations are made using the working RJ of 11/30/2024 TECHNIQUE: Real-time scanning was performed of the fetus, with image documentation and biometric measurements. Endovaginal scanning: Not performed COMPARISON: None. FINDINGS: General: A single living intrauterine gestation is present. Presentation: Vertex. Placenta: Placental position is anterior , without previa. Amniotic fluid index: 7.8 cm, normal range is 5-24 cm. Single deepest vertical pocket is 3.6 cm. heart rate: 131 beats per minute. Maternal cervical canal: 4.4 cm long. Normal lower limit is 2.5 cm. biometrics: Biparietal diameter: 8.7 cm, 35 weeks Head circumference: 30.4 cm, 33 weeks 6 days Abdominal circumference: 30.1 cm, 34 weeks 1 day Femur length: 6.6 cm Clinically estimated gestational age: 34 weeks Composite gestational age from present scan: 34 weeks 2 days Estimated weight and percentile: 2366 g, 48 percentile Other: BPP 8 of 8 IMPRESSION: Single living intrauterine at 34 weeks 0 days, RJ of 12/10/2024. JESSICA measures 7.8 cm. BPP 8 of 8. We strive to produce accurate, complete, and clear reports of imaging services. To assist us in improving patient care, this report was composed using standard report templates and voice recognition software. Therefore, it may contain abnormal punctuation, insertions and/or omissions. Occasional wrong-word or sound-alike substitutions may occur. Though we review the report and make efforts to correct it, we do recommend that the report be read carefully in proper context to recognize any text inaccuracies. Dictated by: Akash Walter M.D. on 10/29/2024 at 12:29 Approved by: Akash Walter M.D. on 10/29/2024 at 12:31
[2024-10-29 09:55] LABS: Add Manual Diff / Slide Review NO; Basophils Absolute Auto 0 /uL (0-100); Basophils Percent Auto 0.3 % (0-2); Eosinophils Absolute Auto 100 /uL (0-450); Eosinophils Percent Auto 1.1 % (2-4); Hematocrit 31.6 % (36-46); Hemoglobin 10.4 g/dL (12.0-16.0); Lymphocytes Absolute Auto 1100 /uL (1100-4500); Lymphocytes Percent Auto 10.4 % (25-40); Mean Corpuscular Volume 81.8 fL (80-100); Monocytes Absolute Auto 700 /uL (0-900); Monocytes Percent Auto 7.1 % (3-14); Neutrophils Absolute Auto 8300 /uL (1500-7000); Neutrophils Percent Auto 81.1 % (50-75); Platelet Count 405 X10^3/uL (150-400); Red Blood Cell Count 3.86 X10^6/uL (4.0-5.2); Red Cell Distribution Width 16.1 % (11.6-14.8); White Blood Cell Count 10.3 X10^3/uL (4.5-11.0)
[2024-10-29 10:12] LABS: Alanine Aminotransferase 16 IU/L (<35); Albumin 3.6 g/dL (3.5-5.0); Albumin Globulin Ratio 1.1 (1.0-2.8); Alkaline Phosphatase 115 U/L (38-126); Aspartate Aminotransferase 22 IU/L (14-36); BUN Creatinine Ratio 6.8 (6-22); Bilirubin Total 0.3 mg/dL (0.2-1.3); Blood Urea Nitrogen 5 mg/dL (7-17); Calcium 9.1 mg/dL (8.4-10.2); Carbon Dioxide 20 mmol/L (22-32); Chloride 108 mmol/L (98-107); Estimated Glomerular Filt Rate > 60 mL/min (>60); Globulin 3.3 g/dL (1.7-4.1); Glucose 91 mg/dL (70-100); HEMOLYSIS < 15 (0-50); Sodium 135 mmol/L (137-145); Total Protein 6.9 g/dL (6.3-8.2); Uric Acid 4.5 mg/dL (2.5-6.2)
[2024-10-29 10:47] LABS: Protein (Total) Urine Random 14 mg/dL (0-12)
[2024-10-29 10:57] LABS: Creatinine Urine Random 70.01 mg/dL; Protein Creatinine Ratio Urine 0.19 GRAM/24H
== END 2024-10-29 10:43 | disposition home or self-care (01) ==
LOC: LABOR 09:47 → OB 11-01 08:47
PROVIDERS: Referring Provider Obstetrics & Gynecology; Visit Provider Obstetrics & Gynecology
DX: O36.8130 Decreased fetal movements, third trimester, not applicable or unspecified (principal); O10.913 Unspecified pre-existing hypertension complicating pregnancy, third trimester; Z3A.34 34 weeks gestation of pregnancy
CPT/HCPCS: 36415; 59025; 76815; 80053; 84550; 85025; G0378; G0379

== ENCOUNTER 2024-10-30 08:00 | Observation (INO) | payer OTHER, SELFPAY ==
[2024-10-30] MEDS: NIFEdipine 30 MG TAB ER PO (09:23)
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
== END 2024-10-30 13:45 | disposition home or self-care (01) ==
PROVIDERS: Admitting Provider Obstetrics & Gynecology; Referring Provider Obstetrics & Gynecology; Visit Provider Obstetrics & Gynecology
DX: O10.913 Unspecified pre-existing hypertension complicating pregnancy, third trimester (principal); O99.213 Obesity complicating pregnancy, third trimester; E66.9 Obesity, unspecified; Z3A.34 34 weeks gestation of pregnancy
CPT/HCPCS: 59025; 59050; 76815; 99234; G0378; G0379

== ENCOUNTER 2024-11-01 15:56 | Observation (INO) | payer OTHER, SELFPAY ==
[2024-11-01] MEDS: NIFEdipine 30 MG TAB ER PO (16:38)
[2024-11-01 16:44] LABS: Alanine Aminotransferase 22 IU/L (<35); Albumin 4.2 g/dL (3.5-5.0); Albumin Globulin Ratio 1.1 (1.0-2.8); Alkaline Phosphatase 140 U/L (38-126); Aspartate Aminotransferase 38 IU/L (14-36); BUN Creatinine Ratio 9.5 (6-22); Bilirubin Total 0.5 mg/dL (0.2-1.3); Blood Urea Nitrogen 7 mg/dL (7-17); Calcium 9.7 mg/dL (8.4-10.2); Carbon Dioxide 21 mmol/L (22-32); Chloride 105 mmol/L (98-107); Estimated Glomerular Filt Rate > 60 mL/min (>60); Glucose 94 mg/dL (70-100); HEMOLYSIS 23 (0-50); Potassium 3.7 mmol/L (3.4-5.1); Sodium 135 mmol/L (137-145); Total Protein 8.2 g/dL (6.3-8.2)
[2024-11-01 16:45] LABS: Add Manual Diff / Slide Review NO; Basophils Absolute Auto 0 /uL (0-100); Basophils Percent Auto 0.4 % (0-2); Eosinophils Absolute Auto 100 /uL (0-450); Eosinophils Percent Auto 0.7 % (2-4); Hematocrit 36.3 % (36-46); Hemoglobin 11.8 g/dL (12.0-16.0); Lymphocytes Absolute Auto 1500 /uL (1100-4500); Lymphocytes Percent Auto 11.5 % (25-40); Mean Corpuscular HGB Conc 32.5 % (30-36); Mean Corpuscular Hemoglobin 26.6 PG (26-34); Mean Corpuscular Volume 81.8 fL (80-100); Monocytes Absolute Auto 1000 /uL (0-900); Monocytes Percent Auto 8.2 % (3-14); Neutrophils Absolute Auto 10200 /uL (1500-7000); Neutrophils Percent Auto 79.2 % (50-75); Platelet Count 497 X10^3/uL (150-400); Red Blood Cell Count 4.43 X10^6/uL (4.0-5.2); Red Cell Distribution Width 16.3 % (11.6-14.8); White Blood Cell Count 12.8 X10^3/uL (4.5-11.0)
[2024-11-01 18:15] VITALS: BP 188/96; PULSE 107
[2024-11-01] MEDS: LABETALOL 100 MG TABLET 200 MG PO (18:15)
[2024-11-01 19:07] LABS: Creatinine Urine Random 121.53 mg/dL; Protein (Total) Urine Random 181 mg/dL (0-12); Protein Creatinine Ratio Urine 1.48 GRAM/24H
[2024-11-01 19:47] VITALS: BP 160/86; PULSE 106
[2024-11-01] MEDS: HYDRALAZINE 20 MG/ML VIAL 5 MG IV (19:47)
[2024-11-01 20:56] VITALS: BP 149/79
[2024-11-01] MEDS: PRENATAL VIT,CALC/IRON/FOLIC 1 TABLET 1 TAB PO (21:10)
[2024-11-01] MEDS: ONDANSETRON 4 MG/2 ML INJ IV (21:10)
[2024-11-01] MEDS: ASCORBIC ACID 500 MG TABLET 1000 MG PO (21:14)
[2024-11-01] MEDS: CHOLECALCIFEROL (VITAMIN D3) 5,000 UNIT TABLET 5000 UNIT PO (21:14)
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
[2024-11-01 22:27] VITALS: BP 136/65
[2024-11-01] MEDS: diphenhydrAMINE 25 MG TABLET 50 MG PO (23:02)
[2024-11-01] MEDS: CALCIUM CARBONATE 500 MG TAB 1000 MG PO (23:43)
[2024-11-02 06:54] LABS: Add Manual Diff / Slide Review NO; Basophils Absolute Auto 100 /uL (0-100); Basophils Percent Auto 0.4 % (0-2); Eosinophils Absolute Auto 200 /uL (0-450); Eosinophils Percent Auto 1.5 % (2-4); Hematocrit 32.1 % (36-46); Hemoglobin 10.6 g/dL (12.0-16.0); Lymphocytes Absolute Auto 1700 /uL (1100-4500); Lymphocytes Percent Auto 14.4 % (25-40); Mean Corpuscular Volume 81.7 fL (80-100); Monocytes Absolute Auto 1000 /uL (0-900); Monocytes Percent Auto 8.5 % (3-14); Neutrophils Absolute Auto 9000 /uL (1500-7000); Neutrophils Percent Auto 75.2 % (50-75); Platelet Count 400 X10^3/uL (150-400); Red Blood Cell Count 3.93 X10^6/uL (4.0-5.2); Red Cell Distribution Width 16.2 % (11.6-14.8); White Blood Cell Count 11.9 X10^3/uL (4.5-11.0)
[2024-11-02 07:01] VITALS: BP 138/63
[2024-11-02] MEDS: NIFEdipine 30 MG TAB ER PO (07:01)
[2024-11-02] MEDS: LABETALOL 100 MG TABLET 200 MG PO (07:01)
[2024-11-02 07:07] LABS: Alanine Aminotransferase 20 IU/L (<35); Albumin 3.6 g/dL (3.5-5.0); Alkaline Phosphatase 127 U/L (38-126); Aspartate Aminotransferase 27 IU/L (14-36); BUN Creatinine Ratio 7.4 (6-22); Bilirubin Total 0.4 mg/dL (0.2-1.3); Blood Urea Nitrogen 5 mg/dL (7-17); Calcium 9.3 mg/dL (8.4-10.2); Carbon Dioxide 20 mmol/L (22-32); Chloride 106 mmol/L (98-107); Estimated Glomerular Filt Rate > 60 mL/min (>60); Globulin 3.5 g/dL (1.7-4.1); Glucose 90 mg/dL (70-100); HEMOLYSIS < 15 (0-50); Potassium 3.8 mmol/L (3.4-5.1); Sodium 134 mmol/L (137-145); Total Protein 7.1 g/dL (6.3-8.2); Uric Acid 4.5 mg/dL (2.5-6.2)
[2024-11-02 07:35] LABS: Creatinine Urine Random 122.57 mg/dL; Protein (Total) Urine Random 21 mg/dL (0-12); Protein Creatinine Ratio Urine 0.17 GRAM/24H
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
[2024-11-02 22:11] LABS: Protein (Total) Urine Random 41 mg/dL (0-12)
[2024-11-02 22:21] LABS: Collection Time Urine 24 Hours; Total Protein 24 Hour Urine 861 mg/day (42-225); Total Volume Urine 2100 mL
== END 2024-11-02 20:33 | disposition home or self-care (01) ==
PROVIDERS: Obstetrics & Gynecology; Admitting Provider Obstetrics & Gynecology; Referring Provider Obstetrics & Gynecology; Visit Provider Obstetrics & Gynecology
DX: O10.913 Unspecified pre-existing hypertension complicating pregnancy, third trimester (principal); Z3A.34 34 weeks gestation of pregnancy
CPT/HCPCS: 36415; 59025; 59050; 80053; 82570; 84156; 84550; 85025; 99222; 99238; G0378; G0379; J0360; J2405

== ENCOUNTER 2024-11-05 07:58 | Outpatient (CLI) | payer OTHER, SELFPAY ==
[2024-11-05 08:43] LABS: Add Manual Diff / Slide Review NO; Basophils Absolute Auto 100 /uL (0-100); Basophils Percent Auto 0.5 % (0-2); Eosinophils Absolute Auto 100 /uL (0-450); Eosinophils Percent Auto 1.1 % (2-4); Hematocrit 32.6 % (36-46); Hemoglobin 10.7 g/dL (12.0-16.0); Lymphocytes Absolute Auto 1400 /uL (1100-4500); Lymphocytes Percent Auto 13.7 % (25-40); Mean Corpuscular HGB Conc 32.9 % (30-36); Mean Corpuscular Hemoglobin 27.1 PG (26-34); Mean Corpuscular Volume 82.5 fL (80-100); Monocytes Absolute Auto 700 /uL (0-900); Neutrophils Absolute Auto 7700 /uL (1500-7000); Neutrophils Percent Auto 77.7 % (50-75); Platelet Count 428 X10^3/uL (150-400); Red Blood Cell Count 3.95 X10^6/uL (4.0-5.2); Red Cell Distribution Width 16.3 % (11.6-14.8); White Blood Cell Count 9.9 X10^3/uL (4.5-11.0)
[2024-11-05 08:54] LABS: Alanine Aminotransferase 24 IU/L (<35); Albumin 3.6 g/dL (3.5-5.0); Albumin Globulin Ratio 0.9 (1.0-2.8); Alkaline Phosphatase 129 U/L (38-126); Aspartate Aminotransferase 30 IU/L (14-36); BUN Creatinine Ratio 6.3 (6-22); Bilirubin Total 0.3 mg/dL (0.2-1.3); Blood Urea Nitrogen 5 mg/dL (7-17); Calcium 9.4 mg/dL (8.4-10.2); Carbon Dioxide 20 mmol/L (22-32); Chloride 105 mmol/L (98-107); Estimated Glomerular Filt Rate > 60 mL/min (>60); Globulin 3.8 g/dL (1.7-4.1); Glucose 106 mg/dL (70-100); HEMOLYSIS < 15 (0-50); Potassium 3.7 mmol/L (3.4-5.1); Sodium 132 mmol/L (137-145); Total Protein 7.4 g/dL (6.3-8.2)
[2024-11-05 09:12] LABS: Uric Acid 5.7 mg/dL (2.5-6.2)
[2024-11-05 09:40] LABS: Creatinine Urine Random 310.89 mg/dL; Protein (Total) Urine Random 12 mg/dL (0-12); Protein Creatinine Ratio Urine 0.03 GRAM/24H
== END 2024-11-05 08:50 | disposition home or self-care (01) ==
LOC: LABOR 08:12 → OB 11-08 06:26
PROVIDERS: Referring Provider Obstetrics & Gynecology; Visit Provider Obstetrics & Gynecology
DX: O10.913 Unspecified pre-existing hypertension complicating pregnancy, third trimester (principal); Z3A.35 35 weeks gestation of pregnancy
CPT/HCPCS: 36415; 59025; 80053; 82570; 84156; 84550; 85025; G0378; G0379

== ENCOUNTER → 2024-11-05 10:49 | Outpatient (CLI) | payer OTHER, SELFPAY ==
--- NOTE | 2024-11-05 10:50 | DI.US.S_ITS ---
PROCEDURE: US OB FOLLOW UP INDICATIONS: re-evaluate growth OUTSIDE/PRIOR DATING DATA: Last menstrual period (LMP): 03/02/2024. LMP-based estimated date of delivery (RJ): 12/02/2024. First dating scan (date and location): 06/02/2024. Estimated date of delivery (RJ) from first dating scan: 12/13/2024 Provided working RJ is 12/10/2024 TECHNIQUE: Real-time scanning was performed of the fetus, with image documentation and biometric measurements. COMPARISON: [facility], OB LIMITED, 10/29/2024, 9:41. FINDINGS: General: A single living intrauterine gestation is present. Presentation: Vertex. Placenta: Placental position is anterior , without previa. Amniotic fluid index: 10.4 cm, normal range is 5-24 cm. Single deepest vertical pocket is 4.6 cm. heart rate: 149 beats per minute. Maternal cervical canal: 3.8 cm long. Normal lower limit is 2.5 cm. Report any funneling of internal cervical os: % of canal length, shape (U or V), width or any U-shaped funneling. biometrics: Biparietal diameter: 9 cm, 36 weeks and 2 days Head circumference: 31.2 cm, 34 weeks and 6 days Abdominal circumference: 30.9 cm, 34 weeks and 1 day Femur length: 6.5 cm, 33 weeks and 4 days Clinically estimated gestational age: 35 weeks Composite gestational age from present scan: 34 weeks and 6 days Estimated weight and percentile: 2472 g, 35 percentile Other: Prominent bowel loops are seen within the abdomen. IMPRESSION: EFW at the 35th percentile, within normal limits. Normal JESSICA. Vertex presentation. Incidentally noted prominent fluid-filled bowel loops within the abdomen. Dictated by: Mainor Sanderson M.D. on 11/05/2024 at 13:33 Approved by: Mainor Sanderson M.D. on 11/05/2024 at 13:48
== END ==
PROVIDERS: Referring Provider Student in an Organized Health Care Education/Training Program; Visit Provider Student in an Organized Health Care Education/Training Program
DX: O10.913 Unspecified pre-existing hypertension complicating pregnancy, third trimester (principal); Z3A.34 34 weeks gestation of pregnancy
CPT/HCPCS: 36415; 59025; 76816; 80053; 82570; 84156; 84550; 85025

== ENCOUNTER 2024-11-09 15:56 | Outpatient (CLI) | payer OTHER, SELFPAY ==
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
== END 2024-11-09 16:30 | disposition home or self-care (01) ==
LOC: LABOR 16:17 → OB 11-16 08:29
PROVIDERS: Referring Provider Obstetrics & Gynecology; Visit Provider Obstetrics & Gynecology
DX: O10.913 Unspecified pre-existing hypertension complicating pregnancy, third trimester (principal); Z3A.35 35 weeks gestation of pregnancy
CPT/HCPCS: 59025; G0378; G0379

== ENCOUNTER 2024-11-12 08:12 | Outpatient (CLI) | payer OTHER, SELFPAY ==
[2024-11-12 09:22] LABS: Add Manual Diff / Slide Review NO; Basophils Absolute Auto 0 /uL (0-100); Basophils Percent Auto 0.3 % (0-2); Eosinophils Absolute Auto 100 /uL (0-450); Hematocrit 32.9 % (36-46); Hemoglobin 10.6 g/dL (12.0-16.0); Lymphocytes Absolute Auto 1200 /uL (1100-4500); Lymphocytes Percent Auto 11.5 % (25-40); Mean Corpuscular HGB Conc 32.3 % (30-36); Mean Corpuscular Hemoglobin 26.4 PG (26-34); Mean Corpuscular Volume 81.8 fL (80-100); Monocytes Absolute Auto 700 /uL (0-900); Neutrophils Absolute Auto 8200 /uL (1500-7000); Neutrophils Percent Auto 80.2 % (50-75); Platelet Count 402 X10^3/uL (150-400); Red Blood Cell Count 4.02 X10^6/uL (4.0-5.2); Red Cell Distribution Width 16.4 % (11.6-14.8); White Blood Cell Count 10.3 X10^3/uL (4.5-11.0)
[2024-11-12 09:41] LABS: Alanine Aminotransferase 22 IU/L (<35); Albumin 3.7 g/dL (3.5-5.0); Albumin Globulin Ratio 1.1 (1.0-2.8); Alkaline Phosphatase 132 U/L (38-126); Aspartate Aminotransferase 25 IU/L (14-36); BUN Creatinine Ratio 5.6 (6-22); Bilirubin Total 0.3 mg/dL (0.2-1.3); Blood Urea Nitrogen 4 mg/dL (7-17); Calcium 9.4 mg/dL (8.4-10.2); Carbon Dioxide 19 mmol/L (22-32); Chloride 108 mmol/L (98-107); Estimated Glomerular Filt Rate > 60 mL/min (>60); Globulin 3.3 g/dL (1.7-4.1); Glucose 102 mg/dL (70-100); HEMOLYSIS < 15 (0-50); Potassium 3.9 mmol/L (3.4-5.1); Sodium 135 mmol/L (137-145); Uric Acid 4.8 mg/dL (2.5-6.2)
[2024-11-12 09:44] LABS: Protein (Total) Urine Random 17 mg/dL (0-12); Protein Creatinine Ratio Urine 0.14 GRAM/24H
== END 2024-11-12 09:05 | disposition home or self-care (01) ==
LOC: LABOR 08:58 → OB 11-16 08:33
PROVIDERS: Referring Provider Obstetrics & Gynecology; Visit Provider Obstetrics & Gynecology
DX: O10.913 Unspecified pre-existing hypertension complicating pregnancy, third trimester (principal); Z36.85 Encounter for antenatal screening for Streptococcus B; Z3A.36 36 weeks gestation of pregnancy
CPT/HCPCS: 59025; 80053; 84550; 85025; 87653; G0378; G0379

== ENCOUNTER → 2024-11-12 10:46 | Outpatient (CLI) | payer OTHER, SELFPAY ==
[2024-11-13 12:22] LABS: Strep Grp B PCR NEG for Grp B Strep
== END ==
PROVIDERS: Visit Provider Student in an Organized Health Care Education/Training Program
DX: Z36.85 Encounter for antenatal screening for Streptococcus B (principal)
CPT/HCPCS: 87653

== ENCOUNTER 2024-11-16 07:54 | Outpatient (CLI) | payer OTHER, SELFPAY ==
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
== END 2024-11-16 08:27 | disposition home or self-care (01) ==
LOC: OB 11-22 06:15
PROVIDERS: Referring Provider Obstetrics & Gynecology; Visit Provider Obstetrics & Gynecology
DX: O47.03 False labor before 37 completed weeks of gestation, third trimester (principal); O10.913 Unspecified pre-existing hypertension complicating pregnancy, third trimester; Z3A.36 36 weeks gestation of pregnancy
CPT/HCPCS: 59025; G0378; G0379

== ENCOUNTER 2024-11-17 17:38 | Observation (INO) | payer OTHER, SELFPAY ==
[2024-11-17 18:37] LABS: Add Manual Diff / Slide Review NO; Basophils Absolute Auto 0 /uL (0-100); Basophils Percent Auto 0.4 % (0-2); Eosinophils Absolute Auto 100 /uL (0-450); Eosinophils Percent Auto 0.7 % (2-4); Hematocrit 32.9 % (36-46); Hemoglobin 10.8 g/dL (12.0-16.0); Lymphocytes Absolute Auto 1400 /uL (1100-4500); Lymphocytes Percent Auto 12.3 % (25-40); Mean Corpuscular HGB Conc 32.7 % (30-36); Mean Corpuscular Hemoglobin 26.3 PG (26-34); Mean Corpuscular Volume 80.5 fL (80-100); Monocytes Absolute Auto 1000 /uL (0-900); Monocytes Percent Auto 9.1 % (3-14); Neutrophils Absolute Auto 8600 /uL (1500-7000); Neutrophils Percent Auto 77.5 % (50-75); Platelet Count 445 X10^3/uL (150-400); Red Blood Cell Count 4.09 X10^6/uL (4.0-5.2); Red Cell Distribution Width 16.6 % (11.6-14.8); White Blood Cell Count 11.1 X10^3/uL (4.5-11.0)
[2024-11-17 18:38] VITALS: BP 169/89; PULSE 103
[2024-11-17] MEDS: NIFEdipine 30 MG TAB ER PO (18:38)
[2024-11-17] MEDS: LABETALOL 100 MG TABLET 200 MG PO ×2 (18:38→21:20)
[2024-11-17 18:49] LABS: Alanine Aminotransferase 18 IU/L (<35); Albumin Globulin Ratio 1.2 (1.0-2.8); Alkaline Phosphatase 143 U/L (38-126); Aspartate Aminotransferase 22 IU/L (14-36); BUN Creatinine Ratio 11.3 (6-22); Bilirubin Total 0.3 mg/dL (0.2-1.3); Blood Urea Nitrogen 8 mg/dL (7-17); Calcium 9.4 mg/dL (8.4-10.2); Carbon Dioxide 18 mmol/L (22-32); Chloride 108 mmol/L (98-107); Estimated Glomerular Filt Rate > 60 mL/min (>60); Globulin 3.4 g/dL (1.7-4.1); Glucose 87 mg/dL (70-100); HEMOLYSIS < 15 (0-50); Potassium 3.9 mmol/L (3.4-5.1); Sodium 135 mmol/L (137-145); Total Protein 7.4 g/dL (6.3-8.2)
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
[2024-11-17 21:20] VITALS: BP 148/89; PULSE 100
[2024-11-17] MEDS: ZOLPIDEM 5 MG TABLET PO (22:24)
[2024-11-18 05:57] LABS: Add Manual Diff / Slide Review NO; Basophils Absolute Auto 0 /uL (0-100); Basophils Percent Auto 0.4 % (0-2); Eosinophils Absolute Auto 100 /uL (0-450); Hemoglobin 10.6 g/dL (12.0-16.0); Lymphocytes Absolute Auto 1500 /uL (1100-4500); Lymphocytes Percent Auto 13.6 % (25-40); Mean Corpuscular Hemoglobin 26.7 PG (26-34); Mean Corpuscular Volume 80.9 fL (80-100); Monocytes Absolute Auto 900 /uL (0-900); Monocytes Percent Auto 8.5 % (3-14); Neutrophils Absolute Auto 8500 /uL (1500-7000); Neutrophils Percent Auto 76.5 % (50-75); Platelet Count 407 X10^3/uL (150-400); Red Blood Cell Count 3.96 X10^6/uL (4.0-5.2); White Blood Cell Count 11.1 X10^3/uL (4.5-11.0)
[2024-11-18 06:08] LABS: Alanine Aminotransferase 16 IU/L (<35); Albumin 3.6 g/dL (3.5-5.0); Albumin Globulin Ratio 1.1 (1.0-2.8); Alkaline Phosphatase 139 U/L (38-126); Aspartate Aminotransferase 21 IU/L (14-36); BUN Creatinine Ratio 7.7 (6-22); Bilirubin Total 0.3 mg/dL (0.2-1.3); Blood Urea Nitrogen 6 mg/dL (7-17); Calcium 9.4 mg/dL (8.4-10.2); Carbon Dioxide 20 mmol/L (22-32); Chloride 107 mmol/L (98-107); Estimated Glomerular Filt Rate > 60 mL/min (>60); Globulin 3.2 g/dL (1.7-4.1); Glucose 87 mg/dL (70-100); HEMOLYSIS < 15 (0-50); Sodium 134 mmol/L (137-145); Total Protein 6.8 g/dL (6.3-8.2)
[2024-11-18 08:06] VITALS: BP 139/89; PULSE 95
[2024-11-18] MEDS: LABETALOL 100 MG TABLET 200 MG PO (08:06)
[2024-11-18] MEDS: NIFEdipine 30 MG TAB ER PO (09:37)
== END 2024-11-18 10:20 | disposition home or self-care (01) ==
PROVIDERS: Obstetrics & Gynecology; Admitting Provider Obstetrics & Gynecology; Referring Provider Obstetrics & Gynecology; Visit Provider Obstetrics & Gynecology
DX: O14.03 Mild to moderate pre-eclampsia, third trimester (principal); Z3A.36 36 weeks gestation of pregnancy
CPT/HCPCS: 36415; 59025; 59050; 80053; 85025; G0378; G0379

== ENCOUNTER 2024-11-21 19:22 | Inpatient (IN) | payer OTHER, SELFPAY ==
[2024-11-21 19:30] VITALS: BP 137/78
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
[2024-11-21] MEDS: DINOPROSTONE VAG (CERVIDIL) 10 MG VAG (20:45)
[2024-11-21 22:28] LABS: Add Manual Diff / Slide Review NO; Basophils Absolute Auto 0 /uL (0-100); Basophils Percent Auto 0.3 % (0-2); Eosinophils Absolute Auto 100 /uL (0-450); Eosinophils Percent Auto 0.9 % (2-4); Hematocrit 34.3 % (36-46); Hemoglobin 11.4 g/dL (12.0-16.0); Lymphocytes Absolute Auto 1700 /uL (1100-4500); Lymphocytes Percent Auto 13.4 % (25-40); Mean Corpuscular HGB Conc 33.2 % (30-36); Mean Corpuscular Hemoglobin 26.6 PG (26-34); Mean Corpuscular Volume 80.3 fL (80-100); Monocytes Absolute Auto 1000 /uL (0-900); Monocytes Percent Auto 7.5 % (3-14); Neutrophils Absolute Auto 10100 /uL (1500-7000); Neutrophils Percent Auto 77.9 % (50-75); Platelet Count 459 X10^3/uL (150-400); Red Blood Cell Count 4.27 X10^6/uL (4.0-5.2); Red Cell Distribution Width 16.5 % (11.6-14.8)
[2024-11-21] MEDS: LABETALOL 100 MG TABLET 200 MG PO (22:33)
[2024-11-21 22:38] LABS: Alanine Aminotransferase 18 IU/L (<35); Albumin 4.2 g/dL (3.5-5.0); Albumin Globulin Ratio 1.1 (1.0-2.8); Alkaline Phosphatase 141 U/L (38-126); Aspartate Aminotransferase 27 IU/L (14-36); BUN Creatinine Ratio 11.6 (6-22); Bilirubin Total 0.2 mg/dL (0.2-1.3); Blood Urea Nitrogen 10 mg/dL (7-17); Calcium 10.3 mg/dL (8.4-10.2); Carbon Dioxide 22 mmol/L (22-32); Chloride 104 mmol/L (98-107); Estimated Glomerular Filt Rate > 60 mL/min (>60); Globulin 3.8 g/dL (1.7-4.1); Glucose 90 mg/dL (70-100); HEMOLYSIS < 15 (0-50); Potassium 3.9 mmol/L (3.4-5.1); Sodium 135 mmol/L (137-145)
--- NOTE | 2024-11-22 07:06 | PM.OBPNLAB ---
Date/Time Date Patient Seen: 11/22/24 Time Patient Seen: 07:15 Pain Control Pain control: tolerating well Comments: pt states she was able to rest some overnight, endorses mild cramping, tolerating well. BP stable o/n without persistent severe range, denies DAVIDSON, vision changes, RUQ pain, no new peripheral edema. NAEON per RN Pelvic Exam Dilation (cm): 1 Effacement (%): 70 station: -2 Amniotic membrane status: Intact Contractions Contractions on admission: none Monitor mode: External Contraction pattern: Irregular Status status: Category l Heart Rate Baseline: 140 Monitor Accelerations: Present Monitor Decelerations: Absent Monitor Variability: Moderate Assessment and Plan Assessment: induction ongoing Plan: begin patient augmentation Comments: 29yo at 37w3d d=1st trimester OSH US, HD2 IOL at early term seconadry to severe maternal CHTN on dual-agent antihypertensive therapy IOL s/p cervidil overnight with appropriate response start IV pitocin for further labor augmentation plan interval SVE 6h post-pattern maternal CHTN stable on home meds, continue anticipate
[2024-11-22 09:45] VITALS: BP 136/89; PULSE 104
[2024-11-22] MEDS: LABETALOL 100 MG TABLET 200 MG PO ×2 (09:45→18:33)
[2024-11-22] MEDS: NIFEdipine 30 MG TAB ER PO ×2 (09:45→21:27)
[2024-11-22] MEDS: LACTATED RINGERS 1,000 ML 100 ML IV (10:22)
[2024-11-22] MEDS: OXYTOCIN PREMIX 30 UNIT/500 ML PLAST..BAG IV (10:23)
[2024-11-22 12:08] VITALS: BP 138/78; PULSE 78
[2024-11-22 18:33] VITALS: BP 180/102; PULSE 104
[2024-11-22] MEDS: fentaNYL 100 MCG/2 ML INJ IV (18:53)
[2024-11-22] MEDS: CALCIUM CARBONATE 500 MG TAB 1000 MG PO (21:28)
[2024-11-23] MEDS: OXYTOCIN PREMIX 30 UNIT/500 ML PLAST..BAG IV (01:05)
--- NOTE | 2024-11-23 08:21 | PM.OBPNLAB ---
Date/Time Date Patient Seen: 11/23/24 Time Patient Seen: 07:30 Pain Control Pain control: tolerating well Comments: Pt resting comfortably this AM, does not appreciate ctx s/p steele balloon (removed 0650), pitocin augmentation resumed at 0200 Pelvic Exam Dilation (cm): 5 Effacement (%): 70 station: -2 Amniotic membrane status: Intact Contractions Contractions on admission: regular Monitor mode: External Pitocin rate (mU/min): 14 Contraction pattern: Irregular Contraction intensity: Mild Status status: Category l Heart Rate Baseline: 140 Monitor Accelerations: Present Monitor Decelerations: Absent Monitor Variability: Moderate Assessment and Plan Assessment: induction ongoing Plan: continuous present management Comments: 29yo at 37w4d D=1st trimester OSH US, HD3 IOL in setting of severe maternal CHTN on dual-agent antihypertensive therapy IOL continue pitocin augmentation CEFM/toco anticipate AROM at time of next SVE if no further cervical change continue home anti-hypertensive therapy daily CBC/CMP pending and will follow anticipate vaginal delivery
[2024-11-23 08:56] VITALS: BP 185/95; PULSE 101
[2024-11-23] MEDS: LABETALOL 100 MG TABLET 200 MG PO ×2 (08:56→20:59)
[2024-11-23] MEDS: NIFEdipine 30 MG TAB ER PO ×2 (08:57→21:00)
[2024-11-23] MEDS: fentaNYL 100 MCG/2 ML INJ 50 MCG IV (11:17)
[2024-11-23 12:52] LABS: Alanine Aminotransferase 19 IU/L (<35); Albumin Globulin Ratio 1.1 (1.0-2.8); Alkaline Phosphatase 154 U/L (38-126); Aspartate Aminotransferase 28 IU/L (14-36); BUN Creatinine Ratio 9.1 (6-22); Bilirubin Total 0.4 mg/dL (0.2-1.3); Blood Urea Nitrogen 7 mg/dL (7-17); Calcium 9.4 mg/dL (8.4-10.2); Carbon Dioxide 20 mmol/L (22-32); Chloride 104 mmol/L (98-107); Estimated Glomerular Filt Rate > 60 mL/min (>60); Globulin 3.7 g/dL (1.7-4.1); Glucose 102 mg/dL (70-100); HEMOLYSIS < 15 (0-50); Sodium 133 mmol/L (137-145); Total Protein 7.7 g/dL (6.3-8.2)
[2024-11-23] MEDS: ePHEDrine 50 MG/ML VIAL IV (13:12)
--- NOTE | 2024-11-23 13:17 | PM.AN.REGBLK ---
[facility] <Rocio Bermudez CRNA - Last Filed: 11/23/24 19:16> Pre-procedure Procedure: Continuous Lumbar Epidural for L&D PMH/ROS narrative: , 38+ weeks, IOL for GHTN. GERD, otherwise negative ROS PSH/Anesthesia history narrative: None Exam narrative: Mall II, good airway. ASA Class: II Labs: Hct Cancelled 11/23/24 12:30 Plt Count Cancelled 11/23/24 12:30 Medications: Current Medications Generic Name Dose Route Start Last Admin Trade Name Freq PRN Reason Stop Dose Admin Calcium Carbonate 1,000 mg 11/21/24 20:21 11/22/24 21:28 Calcium Carbonate 500 Mg Tab PO 1,000 mg Q2HR PRN Administration Dyspepsia Carboprost Tromethamine 250 mcg 11/21/24 20:21 Carboprost 250 Mcg/Ml Ampul IM Q90M PRN Bleeding Diphenhydramine HCl 25 mg 11/23/24 13:14 Diphenhydramine 50 Mg/Ml Vial IV Q10M PRN Pruritis Ephedrine Sulfate 10 mg 11/23/24 13:14 Ephedrine 50 Mg/Ml Vial IV Q5M PRN Blood pressure decrease more than 20% of baseline. Fentanyl 100 mcg 11/22/24 18:47 11/22/24 18:53 Fentanyl 100 Mcg/2 Ml Inj IV 100 mcg Q1H PRN Administration Pain, Severe (7-10) Fentanyl 50 mcg 11/23/24 11:09 11/23/24 11:17 Fentanyl 100 Mcg/2 Ml Inj IV 50 mcg Q1H PRN Administration Pain, Severe (7-10) Oxytocin/Lactated Ringer's 30 unit in 500 mls @ 200 mls/hr 11/21/24 20:21 Oxytocin Premix IV CONT PRN Bleeding Protocol Tranexamic Acid 1,000 mg/ 100 mls @ 600 mls/hr 11/21/24 20:21 Sodium Chloride IV NOW PRN Bleeding Oxytocin/Lactated Ringer's 30 unit in 500 mls @ 2 mls/hr 11/22/24 10:15 11/23/24 01:05 Oxytocin Premix IV 1 milliunit/min TITRATE ANDRIA 1 mls/hr Administration Protocol 2 MILLIUNIT/MIN Oxytocin/Lactated Ringer's 30 unit in 500 mls @ 2 mls/hr 11/22/24 22:30 Oxytocin Premix IV TITRATE [facility] Protocol 2 MILLIUNIT/MIN FENT 2MCG/ML BUPIV 0.125% EPI 200 mcg in 100 mls @ 12 mls/hr 11/23/24 13:15 Fentanyl/Bupiv/Ns 2mcg/Ml - 0.125% EPIDURAL CONT [place]RI[place] Labetalol HCl 200 mg 11/21/24 21:00 11/23/24 08:56 Labetalol 100 Mg Tablet PO 200 mg TID [facility] Administration Lidocaine HCl 20 ml 11/21/24 20:21 Lidocaine 1% 20 Ml INJ INTRA-OP PRN Post Delivery Magnesium Hydroxide 30 ml 11/22/24 18:22 Magnesium Hydroxide 30 Ml Udc PO DAILY PRN Constipation Methylergonovine Maleate 0.2 mg 11/21/24 20:21 Methylergonovine 0.2 Mg Tablet PO Q6HR PRN Heavy Bleeding Methylergonovine Maleate 0.2 mg 11/21/24 20:21 Methylergonovine 0.2 Mg/Ml Vial IM NOW PRN Bleeding Mineral Oil 30 ml 11/21/24 20:21 Mineral Oil 30 Ml Udc TOP PRN PRN Version Misoprostol 800 mcg 11/21/24 20:21 Misoprostol 200 Mcg Tablet IN NOW PRN Bleeding Misoprostol 400 mcg 11/21/24 20:21 Misoprostol 200 Mcg Tablet SL NOW PRN Bleeding Nalbuphine HCl 2.5 mg 11/23/24 13:14 Nalbuphine 20 Mg/Ml Ampul IV Q10M PRN Pruritis Naloxone HCl 0.2 mg 11/21/24 20:21 Naloxone 0.4 Mg/Ml Vial IV Q2MIN PRN Opiate Reversal Nifedipine 30 mg 11/22/24 09:00 11/23/24 08:57 Nifedipine 30 Mg Tab Er PO 30 mg BID [facility] Administration Ondansetron HCl 4 mg 11/21/24 20:21 Ondansetron 4 Mg/2 Ml Inj IV Q4HR PRN Nausea And Vomiting Oxytocin 10 unit 11/21/24 20:21 Oxytocin 10 Unit/Ml Vial IM NOW PRN Bleeding Allergies: Allergies Allergy/AdvReac Type Severity Reaction Status Date / Time latex Allergy Rash Verified 11/21/24 22:55 amlodipine AdvReac Severe cardiac Verified 11/21/24 22:55 Procedure Insertion date: 11/23/24 Insertion time: 12:05 Prep/Local: 1% lidocaine (chlorhex skin prep, dry x 3min) Interspace: L4-5 Patient position: sitting Needle: 17 gauge Tuohy Loss of resistance with: saline CA at (cm): 10 Catheter placed at SKIN (cm): 16 Catheter in SPACE (cm): 6 Sensory level: T10 Insertion: No CSF, No Blood, No Paresthesia with insertion, No Paresthesia with injection and No Test dose reaction Initial Medications TEST DOSE time: 12: BOLUS DOSE time: 12: BOLUS DOSE (mL): 5 BOLUS DOSE med: other (Pump solution) Infusion INFUSION: 0.125% bupivacaine and with fentanyl 2 mcg/mL Initial rate (mL/hr): 12 Subsequent interventions: 1258: Bedside RN called, Pt with hypotension. Ordered 5/10mg ephedrine. 1309: Bedside RN, hypotension continues, ordered 10mg ephedrine, shut pump off. 13:33: I happened to be in L&D and was asked to decrease pt's epidural pump rate. BP has stabilized in the low 100s and baby is doing better. Pt reports she is comfortable, feeling only pressure with contractions. Pump was decreased from 12 to 8 ml/hr. KR 1753: Called by RN, patient delivered 30 min ago. Pushed her bolus button twice prior to delivery. Now hypotension. This provider in OR with surgical case. Advised RN to be sure epidural pump was off, fluid bolus and ephedrine. 1803: To bedside, RN states blood pressure much improved, pump had been off for 30 minutes. Patient awake, sitting up in bed talking. Post-procedure Anesthesia date START: 11/23/24 Anesthesia time START: 12:05 Anesthesia date END: 11/23/24 Anesthesia time END: 17:26 Post-procedure Anesthesia Assessment: Yes CV function: HR/BP stable, Yes Resp function: RR/sat/airway adequate, Yes Post-op hydration adequate, Yes Pain control adequate, Yes Nausea & vomiting absent, Yes Temperature > 36 C, Yes Mental status appropriate and Yes Anesthesia complications <Karmen Banks DO - Last Filed: 11/23/24 13:57> Infusion Subsequent interventions: 1258: Bedside RN called, Pt with hypotension. Ordered 5/10mg ephedrine. 1309: Bedside RN, hypotension continues, ordered 10mg ephedrine, shut pump off. 13:33: I happened to be in L&D and was asked to decrease pt's epidural pump rate. BP has stabilized in the low 100s and baby is doing better. Pt reports she is comfortable, feeling only pressure with contractions. Pump was decreased from 12 to 8 ml/hr. KR
[2024-11-23] MEDS: LACTATED RINGERS 1,000 ML 100 ML IV (13:26)
[2024-11-23] MEDS: TRANEXAMIC ACID 1,000 MG in SODIUM CHLORIDE 0.9% 100 ML 600 MG IV (17:40)
--- NOTE | 2024-11-23 17:55 | P.PCNOB_ITS ---
Events: Other (Chronic hypertension on dual-antihypertensive medications) Labor & Delivery Delivery date: 11/23/24 Delivery Time: 17:26 Cervical ripening method: per Cervidil protocol Induction method: per pitocin protocol Delivery augmentation: rupture of membranes Delivery monitor: internal FHT and internal uterine Route of delivery: L&D Laceration Description: Perineal - 1st Degree Delivery repair: vicryl Quantitative Blood Loss: 243 Anesthesia Type: Epidural Complications: none Narrative: The patient progressed to C/C/+1 with pitocin augmentation and epidural anesthesia. After approximately 30min of maternal pushing efforts, the delivered in OA position and restituted LOT. The anterior shoulder delivered with gentle downward pressure. The posterior shoulder and rest of body delivered with ease. The cord was doubly clamped and cut after a 60sec delay with the placed on maternal abdomen. The placenta delivered spontaneously and was intact with a 3-vessel cord. The fundus was noted to be firm with bimanual massage and pitocin. Inspection of the cervix, vagina, and perineum was notable for a 1st degree perineal laceration. Repair was performed using 3-0 Vicryl in a running, unlocked fashion. At the end of the repair, all tissues noted to be hemostatic. All sponges were removed from the vagina. The patient tolerated delivery well and remained in the labor room with the at the bedside. [place] Baby 1: Infant gender: Female Presentation: vertex Placenta delivery description: Spontaneous Cord Vessel Description: 3 Vessels score (1 min): 8 score (5 min): 9 weight: 5 lb 7.303 oz Plan for aftercare: Routine care
[2024-11-23] MEDS: ONDANSETRON 4 MG/2 ML INJ IV (17:56)
[2024-11-23 20:59] VITALS: BP 156/107; PULSE 82
[2024-11-24] MEDS: DOCUSATE 100 MG CAPSULE PO (09:11)
[2024-11-24] MEDS: PRENATAL VIT,CALC/IRON/FOLIC 1 TABLET 1 TAB PO (09:11)
[2024-11-24] MEDS: NIFEdipine 30 MG TAB ER PO ×2 (09:12→21:10)
[2024-11-24 09:13] VITALS: BP 147/80; PULSE 89
[2024-11-24] MEDS: LABETALOL 100 MG TABLET 200 MG PO ×3 (09:13→22:52)
[2024-11-24 17:10] VITALS: BP 143/82; PULSE 79
--- NOTE | 2024-11-24 17:19 | PM.OBPN.1 ---
Subjective - OB Subjective Patient comments: no complaints [place] baby status: doing well and nursing well [place] feeding status: exclusively breast feeding Date Patient Seen: 11/24/24 Time Patient Seen: 10:45 Interval history: PPD#1 s/p without complication after induction due to chronic hypertension. Bleeding is tapering like a period. No clots. No DAVIDSON or visual changes. Nursing going well. BP's 130's-140's/80's-90's Exam Vital Signs (past 8 hours): - 11/24/24 17:10 Pulse Rate 79 Blood Pressure 143/82 H Narrative Exam Narrative: Gen: Sitting in chair in the nursery, NAD Fundus: Firm U/-1 Ext: Trace edema, negative Brady's. Objective Labs 11/21/24 22:18 11/23/24 12:30 Assessment & Plan Plan day: 1 plan OB: routine care Comments: Patient would like to stay another day Continue to trend BP's Continue Labetolol 200mg TID and Nifedipine XL 30 Anticipate discharge 11/25/24 Time-Based Coding :: [TOTAL MINUTES] spent with patient and on the chart (including review of chart, obtaining history, exam, reviewing outside data, placing orders, documenting exam and treatment plan, and counseling patient) on [DATE].
[2024-11-24 22:52] VITALS: BP 146/81; PULSE 97
[2024-11-25 08:20] VITALS: BP 146/84; PULSE 89; RESP 12; TEMP 36.9
--- NOTE | 2024-11-25 09:51 | P.DS_ITS ---
Discharge Providers Provider Date of admission: 11/21/24 19:22 Discharge Date: 11/25/24 Primary care physician: Doctor Arline MD Consults: 11/21/24 20:21 Consult to Anesthesiology Urgent Comment: Consulting Provider: Anesthesiologist Reason for consultation: Epidural 11/24/24 17:50 Consult to Building Principal Routine Comment: Discharge provider: Ortiz Vazquez MD Summary Hospital Course Date Patient Seen: 11/25/24 Time Patient Seen: 09:52 Diagnoses: Intrauterine gestation, 37+ 4 weeks gestational age, delivered by spontaneous vaginal Chronic hypertension with superimposed preeclampsia without severe features Hospital Course: Due to her chronic hypertension with superimposed preeclampsia, Una was admitted for serial induction at 37+ 3 weeks gestational age. On 11/23/2024, she delivered spontaneously a viable female infant with Apgars of 8/9 and a weight of 5 lb 7.3 oz. following delivery both mother and baby have done extremely well with the mother experiencing prompt return of bowel and bladder function, she is ambulating independently, tolerating regular diet, and her pain is well controlled with oral pain medication. She will be discharged at this time to home in an afebrile mildly hypertensive condition after counseling regarding precautionary symptoms, limitations of activity, medications, and plans for follow-up which will be in 2 weeks. Medications at discharge will include resumption of her antihypertensive medications ( nifedipine 30 mg extended release twice daily and labetalol 200 mg p.o. t.i.d.). In addition she will use eyow-qrs-tvrysrj pain medications but does not require prescription pain medications. Peripartum Data Delivery Method: Natural Vaginal Laceration Description: Perineal - 1st Degree Episiotomy description: None Procedures: continuous lumbar epidural spontaneous vaginal complications: none 1: Gender: Female Disposition of : home Discharge Diagnosis (1) Chronic hypertension with superimposed preeclampsia: Status: Acute (2) Normal vaginal delivery: Status: Acute Status at Discharge Cognitive/behavioral status at discharge: oriented Functional status at discharge: independent ambulation Overall status at discharge: patient is progressing back to baseline Time Spent with Patient Time attestation: Total time spent providing and/or coordinating discharge services: Time spent: Less than 30 minutes Objective Labs 11/21/24 22:18 11/23/24 12:30 Exam Vital Signs (past 8 hours): - 11/25/24 08:20 Temperature 98.5 F Pulse Rate 89 Respiratory Rate 12 Blood Pressure 146/84 H Const General: cooperative and comfortable Nutritional Appearance: average body habitus Orientation: alert and oriented x3 HENMT Head: normal to inspection, atraumatic and abrasion Ears: hearing grossly normal bilaterally Face and sinus: face symmetric Eyes General: appearance normal, both eyes and all related structures Conjunctivae: conjunctivae normal Sclera: sclerae normal EOM: EOM intact bilaterally Neck Neck: normal visual inspection Resp Effort & Inspection: normal respiratory effort and able to speak in complete sentences Auscultation: clear to auscultation bilaterally Cardio Rate: regular rate Rhythm: regular rhythm Heart Sounds: S1 normal, S2 normal and no murmurs GI Inspection: normal to inspection Palpation: soft and no hepatosplenomegaly External Female Exam: other (No significant bleeding noted) Extrem General: no calf tenderness Psych Appearance: grossly normal Mental Status: mental status grossly normal Speech and Movement: speech and movement normal Mood: congruent mood Affect: normal affect Attitude: cooperative Thought Process: normal Thought Content: normal Judgment: judgment good Discharge Plan Discharge Plan Patient Disposition: Home Provider Discharge Comment: Please review the written instructions you received when you were discharged from the hospital. Your follow-up appointment is scheduled for 2 weeks after your delivery and we look forward to seeing you then. If however in the meanwhile you have any issues, concerns, or questions, please contact the office either by phone at [phone], or via the patient portal. Discharge orders & Medications Prescriptions: New ibuprofen 600 mg Tablet 600 mg PO Q6HR PRN (Reason: Pain, Mild (1-3)) Qty: 30 2RF Continued nifedipine 30 mg tablet extended release 30 mg PO BID labetalol 200 mg tablet 200 mg PO TID Follow up/Referrals: Lakshmi Nunez MD [Physician] - 6 Weeks (Please follow up with Dr. Nunez in 2 weeks on December 07Friday @ 3:15pm for a blood pressure chech. Please follow up on January 04 @ 11:00 am for your 6 week appointment. (: ) Discharge Health Status Multidrug resistant organism: No MDRO Diet/Activity/Treatments Diet: Diet as Tolerated Activity: As tolerated Other treatments: Svpe-tad-pwzjwac Tylenol may be used for additional pain relief. Htkj-sty-nqxromw stool softeners and/or MiraLax may be used as needed for constipation. Skin/Wound/Dressing Care Report to your healthcare provider any signs of infection, such as:: chills, fever, increased pain, unusual drainage and unusual redness Dressing: N/A Visit Report/Discharge Packet Instructions: Depression, DI for Labor and Delivery, Vaginal , DI for and Nipple Soreness Stand Alone Forms: Discharge: Care Discharge Data Primary Care Provider: Miscellaneous,Doctor
== END 2024-11-25 10:40 | disposition home or self-care (01) | DRG 807 ==
PROVIDERS: Admitting Provider Obstetrics & Gynecology; Referring Provider Obstetrics & Gynecology; Visit Provider Obstetrics & Gynecology
DX: O10.92 Unspecified pre-existing hypertension complicating childbirth (principal); Z37.0 Single live birth; O11.4 Pre-existing hypertension with pre-eclampsia, complicating childbirth; Z3A.37 37 weeks gestation of pregnancy; O70.0 First degree perineal laceration during delivery
CPT/HCPCS: 36415; 59050; 59200; 80053; 85025; 86850; 86900; 86901; G0379; J2405; J2590; J3010

== ENCOUNTER → 2025-05-18 12:59 | Outpatient (CLI) | payer SELFPAY | PROVIDERS: Visit Provider Chiropractor | DX: M54.50 Low back pain, unspecified (principal) | CPT/HCPCS: 87077; 87086; 87186 ==

== ENCOUNTER 2025-05-18 13:19 | Emergency (ER) | payer SELFPAY ==
[2025-05-18] VITALS (11 sets, daily range): BP systolic 154–206; BP diastolic 76–123; PULSE 91–116; RESP 16; TEMP 36.8; O2SAT 98–100; BMI 31.3
[2025-05-18 13:46] LABS: Add Manual Diff / Slide Review NO; Basophils Absolute Auto 100 /uL (0-100); Basophils Percent Auto 0.9 % (0-2); Eosinophils Absolute Auto 200 /uL (0-450); Eosinophils Percent Auto 3.5 % (2-4); Hematocrit 39.1 % (36-46); Hemoglobin 13.3 g/dL (12.0-16.0); Lymphocytes Absolute Auto 1300 /uL (1100-4500); Lymphocytes Percent Auto 22.1 % (25-40); Mean Corpuscular Hemoglobin 26.7 PG (26-34); Mean Corpuscular Volume 78.7 fL (80-100); Monocytes Absolute Auto 600 /uL (0-900); Monocytes Percent Auto 10.2 % (3-14); Neutrophils Absolute Auto 3800 /uL (1500-7000); Neutrophils Percent Auto 63.3 % (50-75); Platelet Count 359 X10^3/uL (150-400); Red Blood Cell Count 4.97 X10^6/uL (4.0-5.2); Red Cell Distribution Width 17.1 % (11.6-14.8)
[2025-05-18 14:04] LABS: Alanine Aminotransferase 29 IU/L (<35); Albumin 4.7 g/dL (3.5-5.0); Albumin Globulin Ratio 1.2 (1.0-2.8); Alkaline Phosphatase 69 U/L (38-126); Aspartate Aminotransferase 32 IU/L (14-36); Bilirubin Total 0.4 mg/dL (0.2-1.3); Blood Urea Nitrogen 7 mg/dL (7-17); Calcium 9.5 mg/dL (8.4-10.2); Carbon Dioxide 23 mmol/L (22-32); Chloride 103 mmol/L (98-107); Estimated Glomerular Filt Rate > 60 mL/min (>60); Glucose 96 mg/dL (70-99); HEMOLYSIS < 15 (0-50); Lipase 52 U/L (23-300); Potassium 3.8 mmol/L (3.4-5.1); Sodium 138 mmol/L (137-145); Total Protein 8.7 g/dL (6.3-8.2)
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
[2025-05-18] MEDS: diphenhydrAMINE 50 MG/ML VIAL 25 MG IV (14:43)
[2025-05-18] MEDS: SODIUM CHLORIDE 0.9% 1,000 ML 1000 ML IV (14:43)
[2025-05-18] MEDS: ONDANSETRON 4 MG/2 ML INJ IV (14:43)
[2025-05-18] MEDS: METOCLOPRAMIDE 10 MG/2 ML INJ IV (14:43)
[2025-05-18 15:08] LABS: Magnesium 1.6 mg/dL (1.6-2.3)
== END 2025-05-18 16:29 | disposition home or self-care (01) ==
PROVIDERS: Emergency Provider Student in an Organized Health Care Education/Training Program
DX: R10.30 Lower abdominal pain, unspecified (principal); N83.201 Unspecified ovarian cyst, right side; R11.0 Nausea; R51.9 Headache, unspecified
CPT/HCPCS: 36415; 74177; 80053; 81003; 81025; 83690; 83735; 85025; 96361; 96374; 96375; 99284; J1200; J2270; J2405; J2765; Q9967